=== PATIENT | female | born 1960 | race Two or more races ===

== ENCOUNTER 2016-09-28 13:50 | Inpatient (IN) | payer OTHER ==
[~2016-09-28] VITALS: Ht 162.6 cm; Wt 116.6 kg
[2016-09-28 15:40] VITALS: BP 156/105
--- NOTE | 2016-09-28 16:19 | Emergency Room Report ---
History of Present Illness General Chief Complaint: General Complaint Source: Patient Present Illness HPI 55 YO Female presents to the ED c/o tenderness 8/10 in severity and swelling to the bilateral axilla since age of 13. Patient states she's had a long-standing history of hydradenitis and has had one previous surgery in the past. Patient states she has tried multiple courses of oral antibiotics which provide little to no relief. Patient presents today for surgical removal of tracts and abscess 's. She denies nausea, vomiting, fevers, chills, recent illness. Pt reports Pmhx of DM and HTN. Denies CP, Palpitations, LOC, AMS, dizziness, Changes in Vision, Sensation, paresthesias, or a sudden severe headache. Allergies: Coded Allergies: CODEINE (Verified Allergy, Severe, 09/28/16) vomiting Patient History Past Medical History: see triage record Past Surgical History: none Pertinent Family History: none Last Menstrual Period: na Now: No Immunizations: UTD Reviewed Nursing Documentation: PMH: Agreed, PSxH: Agreed Nursing Documentation-PMH Past Medical History: No History, Except For Hx Hypertension: Yes Hx Diabetes: Yes Review of Systems All Other Systems: negative except mentioned in HPI Physical Exam Vital Signs Date Time Temp Pulse Resp B/P Pulse Ox O2 Delivery O2 Flow Rate FiO2 09/28/16 15:36 98.2 101 18 156/105 98 Room Air Sp02 EP Interpretation: reviewed, abnormal - elevated BP, tachycardic in triage at 101 General Appearance: no apparent distress, alert, GCS 15, non-toxic Head: normocephalic, atraumatic Eyes: bilateral eye PERRL, bilateral eye normal inspection ENT: hearing grossly normal, normal pharynx, no angioedema, normal voice Neck: full range of motion, supple/symm/no masses Respiratory: lungs clear, normal breath sounds, speaking full sentences Cardiovascular #1: regular rate, rhythm, no edema Gastrointestinal: normal bowel sounds, non tender, soft, no guarding, no rebound Rectal: deferred Genitourinary: normal inspection, no CVA tenderness Musculoskeletal: back normal, gait/station normal, normal range of motion, non- tender, no calf tenderness Neurologic: alert, oriented x3, responsive, motor strength/tone normal, sensory intact, speech normal Psychiatric: judgement/insight normal, memory normal, mood/affect normal, no suicidal/homicidal ideation Reflexes: 4+ bicep (R), 4+ bicep (L), 4+ tricep (R), 4+ tricep (L), 4+ knee (R) , 4+ knee (L) Skin: normal color, no rash, warm/dry, well hydrated Lymphatic: no adenopathy Medical Decision Making PA Attestation Dr. glass is my supervising Physician whom patient management has been discussed with. Diagnostic Impression: Primary Impression: Hidradenitis axillaris ER Course 55 YO Female presents to the ED c/o tenderness 10 in severity and swelling to the bilateral axilla since age of 13. Patient states she's had a long-standing history of hydradenitis and has had one previous surgery in the past. Patient states she has tried multiple courses of oral antibiotics which provide little to no relief. Patient presents today for surgical removal of tracts and abscess 's. She denies nausea, vomiting, fevers, chills, recent illness. Pt reports Pmhx of DM and HTN. Denies CP, Palpitations, LOC, AMS, dizziness, Changes in Vision, Sensation, paresthesias, or a sudden severe headache. Ddx considered but are not limited to cellulitis, hydradenitis Suppurativa, fracture, d/L, gout, abscess Vital signs: are WNL, pt. is afebrile H&PE are most consistent with bilateral axilla hydradenitis requiring direct admission for surgical or IV abx management. ORDERS: -Gen. preop labwork: CBC, CMP, PT/PTT: elevated glucose, LFT's and alk phos. otherwise unremarkable - EK BPM NSR - no acute ST changes reviewed by Dr. Price this interpretation was scribed by BEE Reyes - CXR: No consolidation, effusion, pneumothorax or acute cardiopulmonary findings per official radiology ED INTERVENTIONS: None required at this time. DISPOSITION: at this time pt. will be admitted to Dr. Escamilla for hydradenitis Suppurativa. Dr. Escamilla agreed to admit the pt. and to continue pt. care management. Labs Test 09/28/16 16:05 White Blood Count 8.6 K/UL (4.8-10.8) Red Blood Count 4.52 M/UL (4.20-5.40) Hemoglobin 14.3 G/DL (12.0-16.0) Hematocrit 41.7 % (37.0-47.0) Mean Corpuscular Volume 92 FL (80-99) Mean Corpuscular Hemoglobin 31.8 PG (27.0-31.0) Mean Corpuscular Hemoglobin Concent 34.4 G/DL (32.0-36.0) Red Cell Distribution Width 13.7 % (11.6-14.8) Platelet Count 226 K/UL (150-450) Mean Platelet Volume 8.9 FL (6.5-10.1) Neutrophils (%) (Auto) 68.4 % (45.0-75.0) Lymphocytes (%) (Auto) 23.0 % (20.0-45.0) Monocytes (%) (Auto) 5.1 % (1.0-10.0) Eosinophils (%) (Auto) 2.6 % (0.0-3.0) Basophils (%) (Auto) 1.0 % (0.0-2.0) Prothrombin Time 9.9 SEC (9.30-11.50) Prothromb Time International Ratio 0.9 (0.9-1.1) Activated Partial Thromboplast Time 24 SEC (23-33) Sodium Level 142 mEQ/L (135-145) Potassium Level 3.6 mEQ/L (3.4-4.9) Chloride Level 102 mEQ/L (98-107) Carbon Dioxide Level 25 mEQ/L (20-30) Anion Gap 15 (5-15) Blood Urea Nitrogen 19 mg/dL (7-23) Creatinine 0.9 mg/dL (0.5-0.9) Estimat Glomerular Filtration Rate > 60 mL/min (>60) Glucose Level 205 mg/dL (74-106) Calcium Level 9.6 mg/dL (8.6-10.2) Total Bilirubin 0.3 mg/dL (0.0-1.2) Aspartate Amino Transf (AST/SGOT) 81 U/L (5-40) Alanine Aminotransferase (ALT/SGPT) 64 U/L (3-33) Alkaline Phosphatase 110 U/L (35-104) Total Protein 8.0 g/dL (6.6-8.7) Albumin 4.4 g/dL (3.5-5.2) Globulin 3.6 g/dL Albumin/Globulin Ratio 1.2 (1.0-2.7) EKG Diagnostic Results Rate: normal - 99 Rhythm: NSR ST Segments: no acute changes ASA given to the pt in ED: No PA Scribe Text no acute ST changes per preliminary read by Dr. Price, his interpretation is scribed by BEE Reyes. Last Vital Signs Date Time Temp Pulse Resp B/P Pulse Ox O2 Delivery O2 Flow Rate FiO2 09/28/16 15:36 98.2 101 18 156/105 98 Room Air Disposition: ADMITTED INPATIENT Condition: Serious Referrals: NON PHYSICIAN (PCP) Siena Reyes Sep 28, 2016 16:19
[2016-09-28 16:33] LABS: EOSINOPHILS % (AUTO) 2.6 % (0.0-3.0); MEAN CORPUSCULAR HEMOGLOBIN 31.8 PG (27.0-31.0); MEAN CORPUSCULAR HGB CONC 34.4 G/DL (32.0-36.0); MEAN CORPUSCULAR VOLUME 92 FL (80-99); MEAN PLATELET VOLUME 8.9 FL (6.5-10.1); MONOCYTES % (AUTO) 5.1 % (1.0-10.0); NEUTROPHILS % (AUTO) 68.4 % (45.0-75.0); PLATELET COUNT 226 K/UL (150-450); RED BLOOD COUNT 4.52 M/UL (4.20-5.40); RED CELL DISTRIBUTION WIDTH 13.7 % (11.6-14.8); WHITE BLOOD COUNT 8.6 K/UL (4.8-10.8)
[2016-09-28 16:47] LABS: INR 0.9 (0.9-1.1); PROTHROMBIN TIME 9.9 SEC (9.30-11.50)
--- NOTE | 2016-09-28 16:48 | Diagnostic Imaging Report ---
Indication: Dyspnea Comparison: None A single view chest radiograph was obtained. Findings: Cardiomediastinal appearance is within normal limits for age. Pulmonary vascularity is appropriate. The diaphragmatic contour is smooth and costophrenic angles are sharp. No pleural effusions are identified. Mild osteophytes noted throughout the thoracic spine. Impression: No acute findings
[2016-09-28 16:54] LABS: ALANINE AMINOTRANSFERASE 64 U/L (3-33); ALBUMIN/GLOBULIN RATIO 1.2 (1.0-2.7); ANION GAP 15 (5-15); ASPARTATE AMINO TRANSFERASE 81 U/L (5-40); CALCIUM 9.6 mg/dL (8.6-10.2); CARBON DIOXIDE 25 mEQ/L (20-30); CHLORIDE 102 mEQ/L (98-107); CREATININE 0.9 mg/dL (0.5-0.9); GLOMERULAR FILTRATION RATE > 60 mL/min (>60); HEMOLYSIS 6; POTASSIUM 3.6 mEQ/L (3.4-4.9); SODIUM 142 mEQ/L (135-145)
[2016-09-28] MEDS ORDERED: D5NS 1,000 ML IV SCH (17:00)
[2016-09-28] MEDS ORDERED: Mylanta II UD 30ml ORAL PRN (17:00)
[2016-09-28] MEDS ORDERED: Morphine Sulfate 4mg/ml Inj IVP PRN (17:00)
[2016-09-28] MEDS ORDERED: Miralax 17gm pkt ORAL PRN (17:00)
[2016-09-28] MEDS ORDERED: LORazepam Inj 2mg/ml 1ml IV PRN (17:00)
[2016-09-28] MEDS ORDERED: Milk of Magnesia 30ml Ud ORAL PRN (17:00)
[2016-09-28 17:40] VITALS: BP 152/101
[2016-09-28 18:21] LABS: APPEARANCE,URINE CLEAR; KETONES,URINE NEGATIVE (NEGATIVE); LEUKOCYTE ESTERASE ,URINE 1+ (NEGATIVE); NITRITE,URINE NEGATIVE (NEGATIVE); PH,URINE 5 (4.5-8.0); PROTEIN,URINE 2+ (NEGATIVE); UROBILINOGEN,URINE NORMAL MG/DL (0.0-1.0)
[2016-09-28 18:27] LABS: BACTERIA,URINE FEW /HPF; RBC,URINE 0-2 /HPF (0 - 2); SQUAMOUS EPITHELIAL CELL,UR FEW /LPF (NONE/OCC)
[2016-09-28] MEDS: ceFAZolin 1gm in D5W 55ml IVPB SCH (18:56)
[2016-09-28] MEDS ORDERED: LOSARTAN POTAS100 MG ORAL (19:39)
[2016-09-28 19:40] VITALS: BP 150/98
[2016-09-28] MEDS ORDERED: AMLODIPINE BESY10 MG ORAL (19:41)
[2016-09-28] MEDS ORDERED: HYDROCHLOROTHIA25 MG ORAL (19:41)
[2016-09-28] MEDS ORDERED: MONTELUKAST SOD10 MG ORAL (19:43)
[2016-09-28] MEDS ORDERED: METFORMIN HCL500 M1 ORAL (19:43)
[2016-09-28 20:00] VITALS: BP 145/76
--- NOTE | 2016-09-28 21:17 | History and Physical ---
History of Present Illness General Date patient seen: Sep 28, 2016 Time patient seen: 21:09 Reason for Hospitalization: abscess Present Illness HPI 55 y/o morbidly obese female with hx of HTN/DMII and hidradenitis for many years , presents to the ER with c/o tenderness 8/10 in severity and swelling to the bilateral axillae. Patient states she's had a long-standing history of hydradenitis and has had one previous surgery in the past. Patient states she has tried multiple courses of oral antibiotics which provide little to no relief. Her pain is not relieved at home and noticed she had pus-like material draining from her R axilla Allergies: Coded Allergies: CODEINE (Verified Allergy, Severe, 09/28/16) vomiting Medication History Scheduled Amlodipine Besylate* (Amlodipine Besylate*), 10 MG ORAL DAILY, (Reported) Hydrochlorothiazide* (Hydrochlorothiazide*), 25 MG ORAL DAILY, (Reported) Losartan Potassium (Losartan Potassium), 100 MG ORAL DAILY, (Reported) Metformin Hcl* (Metformin Hcl*), 500 MG ORAL TWICE A DAY, (Reported) Montelukast Sodium* (Montelukast Sodium*), 10 MG ORAL DAILY, (Reported) Patient History History Provided By: Patient Healthcare decision maker Resuscitation status full code Advanced Directive on File Past Medical/Surgical History Past Medical/Surgical History: (1) Hidradenitis axillaris Family History Family History: Patient reports no known family medical history. Social History Social History: (1) No significant social history Review of Systems ROS Narrative CONSTITUTIONAL: No weight loss, fever, chills, weakness or fatigue. HEENT: Eyes: No visual loss, blurred vision, double vision or yellow sclerae. Ears, Nose, Throat: No hearing loss, sneezing, congestion, runny nose or sore throat. SKIN: No rash or itching. CARDIOVASCULAR: No chest pain, chest pressure or chest discomfort. No palpitations or edema. RESPIRATORY: No shortness of breath, cough or sputum. GASTROINTESTINAL: No anorexia, nausea, vomiting or diarrhea. No abdominal pain or blood. NEUROLOGICAL: No headache, dizziness, syncope, paralysis, ataxia, numbness or tingling in the extremities. No change in bowel or bladder control. MUSCULOSKELETAL: + bilateral axillary pain, +lower abdominal pannus pain HEMATOLOGIC: No anemia, bleeding or bruising. LYMPHATICS: No enlarged nodes. No history of splenectomy. PSYCHIATRIC: No history of depression or anxiety. ENDOCRINOLOGIC: No reports of sweating, cold or heat intolerance. No polyuria or polydipsia. ALLERGIES: No history of asthma, hives, eczema or rhinitis. Physical Exam Physical Exam Narrative General: alert, cooperative, no distress, appears stated age Head: normocephalic, without obvious abnormality, atraumatic Eyes: conjunctivae/corneas clear. PERRL, EOM's intact Throat: lips, mucosa, and tongue normal. MMM Neck: supple, symmetrical, trachea midline, and no JVD Lungs: clear to auscultation bilaterally Heart: regular rate and rhythm, S1, S2 normal, no murmur, click, rub or gallop Abdomen: soft, non-tender, non-distended, bowel sounds normal; no masses or organomegaly- in pannus there are multiple erythematous lesion inferiorly in the pannus, above it there is another larger lesion tender to palpation Extremities: R axilla- multiple lesions, erythema, active pus drainage, +rubor, +exquisite tenderness L axilla- erythema, rubor, no drainage, multiple lesions, not as tender to palpation Pulses: 2+ and symmetric Neurologic: grossly normal, no focal deficits Last 24 Hour Vital Signs Date Time Temp Pulse Resp B/P Pulse Ox O2 Delivery O2 Flow Rate FiO2 09/28/16 20:10 98.2 98 17 150/98 98 Room Air 09/28/16 19:40 98.2 98 17 150/98 98 Room Air 09/28/16 17:40 98.2 98 14 152/101 98 Room Air 09/28/16 15:40 98.2 101 18 156/105 98 Room Air 09/28/16 15:36 98.2 101 18 156/105 98 Room Air Laboratory Tests Test 09/28/16 16:05 09/28/16 17:55 White Blood Count 8.6 K/UL (4.8-10.8) Red Blood Count 4.52 M/UL (4.20-5.40) Hemoglobin 14.3 G/DL (12.0-16.0) Hematocrit 41.7 % (37.0-47.0) Mean Corpuscular Volume 92 FL (80-99) Mean Corpuscular Hemoglobin 31.8 PG (27.0-31.0) H Mean Corpuscular Hemoglobin Concent 34.4 G/DL (32.0-36.0) Red Cell Distribution Width 13.7 % (11.6-14.8) Platelet Count 226 K/UL (150-450) Mean Platelet Volume 8.9 FL (6.5-10.1) Neutrophils (%) (Auto) 68.4 % (45.0-75.0) Lymphocytes (%) (Auto) 23.0 % (20.0-45.0) Monocytes (%) (Auto) 5.1 % (1.0-10.0) Eosinophils (%) (Auto) 2.6 % (0.0-3.0) Basophils (%) (Auto) 1.0 % (0.0-2.0) Prothrombin Time 9.9 SEC (9.30-11.50) Prothromb Time International Ratio 0.9 (0.9-1.1) Activated Partial Thromboplast Time 24 SEC (23-33) Sodium Level 142 mEQ/L (135-145) Potassium Level 3.6 mEQ/L (3.4-4.9) Chloride Level 102 mEQ/L (98-107) Carbon Dioxide Level 25 mEQ/L (20-30) Anion Gap 15 (5-15) Blood Urea Nitrogen 19 mg/dL (7-23) Creatinine 0.9 mg/dL (0.5-0.9) Estimat Glomerular Filtration Rate > 60 mL/min (>60) Glucose Level 205 mg/dL (74-106) H Calcium Level 9.6 mg/dL (8.6-10.2) Total Bilirubin 0.3 mg/dL (0.0-1.2) Aspartate Amino Transf (AST/SGOT) 81 U/L (5-40) H Alanine Aminotransferase (ALT/SGPT) 64 U/L (3-33) H Alkaline Phosphatase 110 U/L (35-104) H Total Protein 8.0 g/dL (6.6-8.7) Albumin 4.4 g/dL (3.5-5.2) Globulin 3.6 g/dL Albumin/Globulin Ratio 1.2 (1.0-2.7) Urine Color Pale yellow Urine Appearance Clear Urine pH 5 (4.5-8.0) Urine Specific [place] 1.020 (1.005-1.035) Urine Protein 2+ (NEGATIVE) H Urine Glucose (UA) Negative (NEGATIVE) Urine Ketones Negative (NEGATIVE) Urine Occult Blood Negative (NEGATIVE) Urine Nitrite Negative (NEGATIVE) Urine Bilirubin Negative (NEGATIVE) Urine Urobilinogen Normal MG/DL (0.0-1.0) Urine Leukocyte Esterase 1+ (NEGATIVE) H Urine RBC 0-2 /HPF (0 - 2) Urine WBC 2-4 /HPF (0 - 2) Urine Squamous Epithelial Cells Few /LPF (NONE/OCC) Urine Bacteria Few /HPF (NONE) Height (Feet): 5 Height (Inches): 4.00 Weight (Pounds): 260 Medications Current Medications Medications (Trade) Dose Ordered Sig/Laura Route PRN Reason Start Time Stop Time Status Last Admin Dose Admin Acetaminophen (Tylenol) 650 mg Q4H PRN ORAL Mild Pain (Pain Scale 1-3) 09/28/16 17:00 10/28/16 16:59 Acetaminophen (Tylenol) 650 mg Q4H PRN ORAL fever 09/28/16 17:00 10/28/16 16:59 Al Hydroxide/Mg Hydroxide (Mylanta II) 30 ml Q6H PRN ORAL dyspepsia 09/28/16 17:00 10/28/16 16:59 Amlodipine Besylate (Norvasc) 10 mg DAILY ORAL 09/29/16 09:00 10/29/16 08:59 Bisacodyl (Dulcolax) 10 mg HSPRN PRN RECTAL Constipation 09/28/16 17:00 10/28/16 16:59 Cefazolin Sodium/ Dextrose (Ancef/D5W) 55 ml @ 110 mls/hr Q8HR@0200,1000,1800 IVPB 09/28/16 18:00 10/05/16 17:59 09/28/16 18:56 Dextrose STAT PRN IV Hypoglycemia 09/28/16 17:00 10/28/16 16:59 Dextrose/Sodium Chloride (D5ns) 1,000 ml @ 50 mls/hr Q20H IV 09/28/16 17:00 10/28/16 16:59 09/28/16 18:50 Diphenhydramine HCl (Benadryl) 25 mg Q6H PRN ORAL Itching/Pruritis 09/28/16 17:00 10/28/16 16:59 Docusate Sodium (Colace) 100 mg EVERY 12 HOURS ORAL 09/28/16 21:00 10/28/16 20:59 Hydrochlorothiazide (Hydrodiuril) 25 mg DAILY ORAL 09/29/16 09:00 10/29/16 08:59 Lorazepam (Ativan 2mg/ml 1ml) 0.5 mg Q4H PRN IV For Anxiety 09/28/16 17:00 10/05/16 16:59 Losartan Potassium (Cozaar) 100 mg DAILY ORAL 09/29/16 09:00 10/29/16 08:59 Magnesium Hydroxide (Mom) 30 ml HSPRN PRN ORAL Constipation 09/28/16 17:00 10/28/16 16:59 Metformin HCl (Glucophage) 500 mg BID ORAL 09/29/16 09:00 10/29/16 08:59 Montelukast Sodium (Singulair) 10 mg QPM ORAL 09/29/16 16:30 10/29/16 16:29 Morphine Sulfate (Morphine Sulfate) 4 mg Q4H PRN IVP Severe Pain (Pain Scale 7-10) 09/28/16 17:00 10/05/16 16:59 Ondansetron HCl (Zofran) 4 mg Q6H PRN IVP Nausea & Vomiting 09/28/16 17:00 10/28/16 16:59 Polyethylene Glycol (Miralax) 17 gm HSPRN PRN ORAL Constipation 09/28/16 17:00 10/28/16 16:59 Temazepam (Restoril) 15 mg HSPRN PRN ORAL Insomnia 09/28/16 17:00 10/05/16 16:59 Assessment/Plan Problem List: (1) Abscesses of both axillae Assessment & Plan: Admit to inpatient Start IV abx wound culture Supp care Pain control IV fluids Surgical consultation ICD Codes: L02.411 - Cutaneous abscess of right axilla; L02.412 - Cutaneous abscess of left axilla SNOMED: 97661050 (2) Diabetes mellitus type 2 in obese Assessment & Plan: Hold metformin Start insulin sliding scale ICD Codes: E11.69 - Type 2 diabetes mellitus with other specified complication ; E66.9 - Obesity, unspecified SNOMED: 93541630 (3) HTN (hypertension) Assessment & Plan: Cont all 3 BP meds as inpatient ICD Codes: I10 - Essential (primary) hypertension SNOMED: 76277078 (4) Morbid obesity due to excess calories Assessment & Plan: Stable ICD Codes: E66.01 - Morbid (severe) obesity due to excess calories SNOMED: 261146264 EMIL NAVARRO Sep 28, 2016 21:17
[2016-09-28] MEDS: Docusate 100mg cap ORAL SCH (21:41)
[2016-09-29] VITALS (13 sets, daily range): BP systolic 130–181; BP diastolic 67–107
[2016-09-29] MEDS: ceFAZolin 1gm in D5W 55ml IVPB SCH ×4 (01:46→21:40)
[2016-09-29] MEDS: NovoLOG Insulin Flexpen SUBQ SCH ×4 (06:30→21:37)
[2016-09-29 07:22] LABS: BASOPHILS % (AUTO) 0.6 % (0.0-2.0); EOSINOPHILS % (AUTO) 4.8 % (0.0-3.0); LYMPHOCYTES % (AUTO) 26.6 % (20.0-45.0); MEAN CORPUSCULAR HEMOGLOBIN 29.2 PG (27.0-31.0); MEAN CORPUSCULAR HGB CONC 31.6 G/DL (32.0-36.0); MEAN CORPUSCULAR VOLUME 93 FL (80-99); MEAN PLATELET VOLUME 9.1 FL (6.5-10.1); MONOCYTES % (AUTO) 6.8 % (1.0-10.0); NEUTROPHILS % (AUTO) 61.3 % (45.0-75.0); PLATELET COUNT 231 K/UL (150-450); RED BLOOD COUNT 4.54 M/UL (4.20-5.40); RED CELL DISTRIBUTION WIDTH 13.6 % (11.6-14.8); WHITE BLOOD COUNT 7.1 K/UL (4.8-10.8)
[2016-09-29 07:31] LABS: ANION GAP 10 (5-15); CALCIUM 9.4 mg/dL (8.6-10.2); CARBON DIOXIDE 27 mEQ/L (20-30); CHLORIDE 103 mEQ/L (98-107); CREATININE 0.9 mg/dL (0.5-0.9); GLOMERULAR FILTRATION RATE > 60 mL/min (>60); HEMOLYSIS 6; SODIUM 140 mEQ/L (135-145)
[2016-09-29] MEDS: Losartan 50mg tab ORAL SCH (09:00)
[2016-09-29] MEDS: Docusate 100mg cap ORAL SCH ×2 (09:00→21:41)
[2016-09-29] MEDS ORDERED: metFORMIN 500mg tab ORAL SCH (09:00)
--- NOTE | 2016-09-29 09:49 | Anethesia Preoperative Eval ---
Anesthesia Pre-op PMH/ROS General Date of Evaluation: Sep 29, 2016 Anesthesiologist: Ty ASA Score: ASA 3 Mallampati Score Class I : Soft palate, uvula, fauces, pillars visible Class II: Soft palate, uvula, fauces visible Class III: Soft palate, base of uvula visible Class IV: Only hard plate visible Mallampati Classification: Class III Surgeon: Hugo Diagnosis: Axillary HS Surgical Procedure: Bilateral axillary wound I&D Anesthesia History: none Family History: no anesthesia problems Allergies: Coded Allergies: CODEINE (Verified Allergy, Severe, 09/28/16) vomiting Medications: see eMAR Past Medical History Cardiovascular: Reports: HTN, Denies: CAD, MO, arrhythmia, other, valve dz Pulmonary: Reports: OWEN, Denies: COPD, asthma, other Gastrointestinal/Genitourinary: Reports: GERD, Denies: CRI, ESRD, other Neurologic/Psychiatric: Reports: depression/anxiety, Denies: CVA, TIA, dementia, other Endocrine: Reports: DM, Denies: hypothyroidism, other, steroids HEENT: Denies: KLUTI KAAH (L), KLUTI KAAH (R), cataract (L), cataract (R), glaucoma, other Hematology/Immune: Reports: anemia - chronic, Denies: DVT, bleeding disorder, other Musculoskeletal/Integumentary: Reports: other - HS Other: obesity - morbid PSxH Narrative: DIRK pavon Anesthesia Pre-op Phys. Exam Physician Exam Last Vital Signs Date Time Temp Pulse Resp B/P Pulse Ox O2 Delivery O2 Flow Rate FiO2 09/29/16 09:00 122/76 09/29/16 08:14 97.9 83 19 94 Room Air Constitutional: NAD Cardiovascular: RRR Respiratory: CTA Airway Exam Mallampati Score: Class III MO: limited ROM: full Teeth: intact Anesthesia Pre-op A/P Labs Hematology Test 09/28/16 16:05 09/29/16 06:50 White Blood Count 8.6 K/UL (4.8-10.8) 7.1 K/UL (4.8-10.8) Red Blood Count 4.52 M/UL (4.20-5.40) 4.54 M/UL (4.20-5.40) Hemoglobin 14.3 G/DL (12.0-16.0) 13.3 G/DL (12.0-16.0) Hematocrit 41.7 % (37.0-47.0) 42.1 % (37.0-47.0) Mean Corpuscular Volume 92 FL (80-99) 93 FL (80-99) Mean Corpuscular Hemoglobin 31.8 PG (27.0-31.0) H 29.2 PG (27.0-31.0) Mean Corpuscular Hemoglobin Concent 34.4 G/DL (32.0-36.0) 31.6 G/DL (32.0-36.0) L Red Cell Distribution Width 13.7 % (11.6-14.8) 13.6 % (11.6-14.8) Platelet Count 226 K/UL (150-450) 231 K/UL (150-450) Mean Platelet Volume 8.9 FL (6.5-10.1) 9.1 FL (6.5-10.1) Neutrophils (%) (Auto) 68.4 % (45.0-75.0) 61.3 % (45.0-75.0) Lymphocytes (%) (Auto) 23.0 % (20.0-45.0) 26.6 % (20.0-45.0) Monocytes (%) (Auto) 5.1 % (1.0-10.0) 6.8 % (1.0-10.0) Eosinophils (%) (Auto) 2.6 % (0.0-3.0) 4.8 % (0.0-3.0) H Basophils (%) (Auto) 1.0 % (0.0-2.0) 0.6 % (0.0-2.0) Coagulation Test 09/28/16 16:05 Prothrombin Time 9.9 SEC (9.30-11.50) Prothromb Time International Ratio 0.9 (0.9-1.1) Activated Partial Thromboplast Time 24 SEC (23-33) Chemistry Test 09/28/16 16:05 09/29/16 06:50 Sodium Level 142 mEQ/L (135-145) 140 mEQ/L (135-145) Potassium Level 3.6 mEQ/L (3.4-4.9) 4.0 mEQ/L (3.4-4.9) Chloride Level 102 mEQ/L (98-107) 103 mEQ/L (98-107) Carbon Dioxide Level 25 mEQ/L (20-30) 27 mEQ/L (20-30) Anion Gap 15 (5-15) 10 (5-15) Blood Urea Nitrogen 19 mg/dL (7-23) 15 mg/dL (7-23) Creatinine 0.9 mg/dL (0.5-0.9) 0.9 mg/dL (0.5-0.9) Estimat Glomerular Filtration Rate > 60 mL/min (>60) > 60 mL/min (>60) Glucose Level 205 mg/dL (74-106) H 179 mg/dL (74-106) H Calcium Level 9.6 mg/dL (8.6-10.2) 9.4 mg/dL (8.6-10.2) Total Bilirubin 0.3 mg/dL (0.0-1.2) Aspartate Amino Transf (AST/SGOT) 81 U/L (5-40) H Alanine Aminotransferase (ALT/SGPT) 64 U/L (3-33) H Alkaline Phosphatase 110 U/L (35-104) H Total Protein 8.0 g/dL (6.6-8.7) Albumin 4.4 g/dL (3.5-5.2) Globulin 3.6 g/dL Albumin/Globulin Ratio 1.2 (1.0-2.7) Hemoglobin A1c 6.7 % (< 6.0) H Studies Pre-op Studies: EKG - sr Risk Assessment & Plan Assessment: ASA III Plan: GA Status Change Before Surgery: No Pre-Antibiotics Drug: Ancef 2g Given Within 1 Hr of Incision: Yes Time Given: 14:15 SAILAJA WARE M.D. Sep 29, 2016 09:49
--- NOTE | 2016-09-29 13:45 | Pre-Procedure Note/Attestation ---
Pre-Procedure Note/Attestation Complete Prior to Procedure Planned Procedure: bilateral Procedure Narrative: Bilateral axillary tissue excision and flap elevation Attestation I attest that I discussed the nature of the procedure; its benefits; risks and complications; and alternatives (and the risks and benefits of such alternatives ), prior to the procedure, with the patient (or the patient's legal visitor services representative). I attest that, if there was a reasonable possibility of needing a blood transfusion, the patient (or the patient's legal visitor services representative) was given the [facility] standardized written summary, pursuant to the Maulik Angelita Blood Safety Act ([place] Health and Safety Code # 1645, as amended). I attest that I re-evaluated the patient just prior to the surgery and that there has been no change in the patient's H&P, except as documented below: HANSEL FONTANEZ Sep 29, 2016 13:45
[2016-09-29] MEDS ORDERED: fentaNYL 250mcg/5ml ONE (14:00)
[2016-09-29] MEDS ORDERED: Dexamethasone 4mg/ml vial ONE (14:00)
[2016-09-29] MEDS ORDERED: LR 1000ml ONE (14:00)
[2016-09-29] MEDS ORDERED: Glycopyrrolate 0.2mg/ml 1ml Vial ONE (14:00)
[2016-09-29] MEDS ORDERED: Midazolam 2mg/2ml Inj ONE (14:00)
[2016-09-29] MEDS ORDERED: Succinylcholine 20mg/ml 10ml vial ONE (14:00)
[2016-09-29] MEDS ORDERED: Zemuron 50mg/5ml Inj IV ONE (14:00)
[2016-09-29] MEDS ORDERED: Lidocaine 1% 10mg/ml/Epi 0.005mg/ml 30ml vial INJ ONE (14:00)
[2016-09-29] MEDS ORDERED: Heparin 5000 units/ml inj SUBQ SCH (14:00)
[2016-09-29] MEDS ORDERED: Bacitracin 50000 Units Vial ONE (14:00)
[2016-09-29] MEDS ORDERED: Propofol 10mg/ml 20ml IV ONE ×3 (14:00→15:12)
[2016-09-29] MEDS ORDERED: NS Irrig 1000ml ONE (14:00)
[2016-09-29] MEDS ORDERED: Ketorolac 30mg Inj ONE (14:00)
[2016-09-29] MEDS ORDERED: Metoclopramide 10mg/2ml Inj ONE (14:00)
[2016-09-29] MEDS ORDERED: Lidocaine 1% MPF 10mg/ml 5ml ONE (14:00)
[2016-09-29] MEDS ORDERED: Neostigmine 1mg/ml 10ml Inj ONE (14:00)
[2016-09-29] MEDS ORDERED: Sterile Water Irrig 1000ml IRRIG ONE (14:00)
[2016-09-29] MEDS ORDERED: Rate Change PCA 1 Each MISC PRN (14:30)
[2016-09-29] MEDS ORDERED: PCA HYDROmorphone 1mg/ml 30 ML IV PRN (14:30)
[2016-09-29] MEDS ORDERED: LR 1000ml 1,000 ML IVLG SCH (14:35)
--- NOTE | 2016-09-29 14:37 | Immediate Post-Op Evaluation ---
Immediate Post-Op Evalulation Immediate Post-Op Evalulation Procedure: Bilateral axillay wound I&D Date of Evaluation: Sep 29, 2016 Time of Evaluation: 16:16 IV Fluids: 900 Blood Products: 0 Estimated Blood Loss: 40 Urinary Output: 0 Blood Pressure Systolic: 181 Blood Pressure Diastolic: 92 Pulse Rate: 108 Respiratory Rate: 18 O2 Sat by Pulse Oximetry: 97 Temperature (Fahrenheit): 97 Pain Score (1-10): 0 Nausea: No Vomiting: No Complications 0 Patient Status: awake, reacts, patent, none Hydration Status: adequate Drug: Ancef 2g Given Within 1 Hr of Incision: Yes Time Given: 14:15 SAILAJA WARE M.D. Sep 29, 2016 14:37
[2016-09-29] MEDS ORDERED: Metoclopramide 10mg/2ml Inj IVP PRN (14:45)
[2016-09-29] MEDS ORDERED: Midazolam 2mg/2ml Inj IVP PRN (14:45)
[2016-09-29] MEDS ORDERED: DiphenhydrAMINE 50mg/ml Inj IVP PRN (14:45)
[2016-09-29] MEDS ORDERED: fentaNYL 100 mcg/2 mL IV PRN (14:45)
[2016-09-29] MEDS ORDERED: LORazepam Inj 2mg/ml 1ml IV PRN (14:45)
--- NOTE | 2016-09-29 15:27 | General Progress Note ---
Assessment/Plan Problem List: (1) Abscesses of both axillae Assessment & Plan: To OR today for I+D of bilateral axillary abscesses Cont IV abx wound culture Supp care Pain control IV fluids Surgical consultation appreciated ICD Codes: L02.411 - Cutaneous abscess of right axilla; L02.412 - Cutaneous abscess of left axilla SNOMED: 14480515 (2) Diabetes mellitus type 2 in obese Assessment & Plan: Hold metformin Cont insulin sliding scale ICD Codes: E11.69 - Type 2 diabetes mellitus with other specified complication ; E66.9 - Obesity, unspecified SNOMED: 74812104 (3) HTN (hypertension) Assessment & Plan: Cont all 3 BP meds as inpatient ICD Codes: I10 - Essential (primary) hypertension SNOMED: 49437182 (4) Morbid obesity due to excess calories Assessment & Plan: Stable ICD Codes: E66.01 - Morbid (severe) obesity due to excess calories SNOMED: 576809685 Subjective Date patient seen: Sep 29, 2016 ROS Limited/Unobtainable: No Allergies: Coded Allergies: CODEINE (Verified Allergy, Severe, 09/28/16) vomiting Subjective No acute events overnight, no fevers/chills, pain controlled. Tolerated abx Objective Last 24 Hour Vital Signs Date Time Temp Pulse Resp B/P Pulse Ox O2 Delivery O2 Flow Rate FiO2 09/29/16 11:38 98.1 93 20 133/67 97 Room Air 09/29/16 09:00 122/76 09/29/16 08:14 97.9 83 19 135/72 94 Room Air 09/29/16 04:00 97.5 91 20 143/88 97 Room Air 09/29/16 00:00 98.4 87 19 130/74 92 Room Air 09/28/16 20:10 98.2 98 17 150/98 98 Room Air 09/28/16 20:00 97.4 86 18 145/76 94 Room Air 09/28/16 19:40 98.2 98 17 150/98 98 Room Air 09/28/16 17:40 98.2 98 14 152/101 98 Room Air 09/28/16 15:40 98.2 101 18 156/105 98 Room Air 09/28/16 15:36 98.2 101 18 156/105 98 Room Air Intake and Output 09/28/16 09/29/16 19:00 07:00 Intake Total 450 ml Balance 450 ml Intake IV Total 450 ml # Voids 1 Laboratory Tests 09/28/16 16:05: White Blood Count 8.6, Red Blood Count 4.52, Hemoglobin 14.3, Hematocrit 41.7, Mean Corpuscular Volume 92, Mean Corpuscular Hemoglobin 31.8H, Mean Corpuscular Hemoglobin Concent 34.4, Red Cell Distribution Width 13.7, Platelet Count 226, Mean Platelet Volume 8.9, Neutrophils (%) (Auto) 68.4, Lymphocytes (%) (Auto) 23.0, Monocytes (%) (Auto) 5.1, Eosinophils (%) (Auto) 2.6, Basophils (%) (Auto ) 1.0, Prothrombin Time 9.9, Prothromb Time International Ratio 0.9, Activated Partial Thromboplast Time 24, Sodium Level 142, Potassium Level 3.6, Chloride Level 102, Carbon Dioxide Level 25, Anion Gap 15, Blood Urea Nitrogen 19, Creatinine 0.9, Estimat Glomerular Filtration Rate > 60, Glucose Level 205H, Calcium Level 9.6, Total Bilirubin 0.3, Aspartate Amino Transf (AST/SGOT) 81H, Alanine Aminotransferase (ALT/SGPT) 64H, Alkaline Phosphatase 110H, Total Protein 8.0, Albumin 4.4, Globulin 3.6, Albumin/Globulin Ratio 1.2 09/28/16 17:55: Urine Color Pale yellow, Urine Appearance Clear, Urine pH 5, Urine Specific Roby 1.020, Urine Protein 2+H, Urine Glucose (UA) Negative, Urine Ketones Negative, Urine Occult Blood Negative, Urine Nitrite Negative, Urine Bilirubin Negative, Urine Urobilinogen Normal, Urine Leukocyte Esterase 1+H, Urine RBC 0-2 , Urine WBC 2-4, Urine Squamous Epithelial Cells Few, Urine Bacteria Few 09/29/16 06:50: White Blood Count 7.1, Red Blood Count 4.54, Hemoglobin 13.3, Hematocrit 42.1, Mean Corpuscular Volume 93, Mean Corpuscular Hemoglobin 29.2, Mean Corpuscular Hemoglobin Concent 31.6L, Red Cell Distribution Width 13.6, Platelet Count 231, Mean Platelet Volume 9.1, Neutrophils (%) (Auto) 61.3, Lymphocytes (%) (Auto) 26.6, Monocytes (%) (Auto) 6.8, Eosinophils (%) (Auto) 4.8H, Basophils (%) (Auto ) 0.6, Sodium Level 140, Potassium Level 4.0, Chloride Level 103, Carbon Dioxide Level 27, Anion Gap 10, Blood Urea Nitrogen 15, Creatinine 0.9, Estimat Glomerular Filtration Rate > 60, Glucose Level 179H, Calcium Level 9.4, Hemoglobin A1c 6.7H Height (Feet): 5 Height (Inches): 4.00 Weight (Pounds): 257 Objective General: alert, cooperative, no distress, appears stated age Head: normocephalic, without obvious abnormality, atraumatic Eyes: conjunctivae/corneas clear. PERRL, EOM's intact Throat: lips, mucosa, and tongue normal. MMM Neck: supple, symmetrical, trachea midline, and no JVD Lungs: clear to auscultation bilaterally Heart: regular rate and rhythm, S1, S2 normal, no murmur, click, rub or gallop Abdomen: soft, non-tender, non-distended, bowel sounds normal; no masses or organomegaly Extremities: R axilla- multiple lesions, erythema, active pus drainage, +rubor, +exquisite tenderness L axilla- erythema, rubor, no drainage, multiple lesions, not as tender to palpation Pulses: 2+ and symmetric Skin: skin color, texture, turgor normal; no rashes or lesions Neurologic: grossly normal, no focal deficits EMIL NAVARRO Sep 29, 2016 15:27
--- NOTE | 2016-09-29 15:45 | Operative Note - PDOC ---
Operative Note Operative Note Pre-op Diagnosis: Bilateral infected axillary tissue Procedure: Radical excision of bilateral axillary tissue and flap elevation with wound vac placement Post-op Diagnosis: same as pre-op Surgeon: Hugo Warp Knitting Machine Operator: Carmen Anesthesia: general Specimen: yes Complications: none Condition: stable Estimated Blood Loss: minimal Drains: wound vac Implant(s) used?: No HANSEL FONTANEZ Sep 29, 2016 15:45
[2016-09-29] MEDS: Montelukast 10mg tablet ORAL SCH (16:30)
--- NOTE | 2016-09-29 16:54 | Cardiology Report ---
APPROVED REPORT EKG Measurement Heart [id number] Normal sinus rhythm Possible Left atrial enlargement Left axis deviation Pulmonary disease pattern Left ventricular hypertrophy Abnormal ECG
[2016-09-29] MEDS ORDERED: Docusate 100mg cap ORAL SCH (18:00)
[2016-09-29] MEDS: PCA shift volume MISC SCH (19:06)
[2016-09-29] MEDS ORDERED: Zolpidem 5mg tab ORAL PRN (21:00)
--- NOTE | 2016-09-29 21:40 | Consultation ---
DATE OF CONSULTATION: 09/29/2016 HISTORY OF PRESENT ILLNESS: This is a 55-year-old female with a history of diabetes, hypertension, and hidradenitis, who presented to the emergency room with bilateral infected axillary tissues associated with pain and drainage. She has tried antibiotics recently with no avail. She presented with pain and discomfort in the areas, Dr. Janine Escamilla admitted the patient. PAST MEDICAL HISTORY: Significant for diabetes, hypertension, and hidradenitis. PAST SURGICAL HISTORY: Significant for previous incision and drainage. MEDICATION: Includes previous use of antibiotics. ALLERGIES: Include codeine. PHYSICAL EXAMINATION: GENERAL: The patient is an obese female who is alert and oriented. HEART: Regular rate and rhythm. ABDOMEN: Soft, nontender, and nondistended. EXTREMITIES: Examination of her chest reveals bilateral inferior breast pole abscesses associated with hidradenitis as well as bilateral axillary infected blocks of tissue associated with sinus tract and abscesses. ASSESSMENT AND PLAN: This is a 55-year-old morbidly obese female with diabetes and hypertension, who presents with bilateral axillary infections. She will require a radical excision of these areas with staged flap elevation with closure to be done as the second procedure given the amount of drainage from the wounds. It would not be prudent to perform definitive wound closure at this time. At the time of the first procedure as such she will probably undergo excision, flap elevation with interval wound VAC placement followed by definitive flap closure. Arthur Arias M.D. DR: RONAL JOB#: [id number] CC: SERGEI
[2016-09-29] MEDS: Heparin 5000 units/ml inj SUBQ SCH (21:45)
--- NOTE | 2016-09-29 22:30 | Operative Note - Dictated ---
DATE OF OPERATION: 09/29/2016 PREOPERATIVE DIAGNOSES: 1. Infected right axillary tissue. 2. Infected left axillary tissue. POSTOPERATIVE DIAGNOSES: 1. Infected right axillary tissue. 2. Infected left axillary tissue. PROCEDURES: 1. Radical excision of right axillary tissue. 2. Elevation of a medial arm flap for staged closure of right axillary wound. 3. Elevation of a superior chest wall flap for closure of right axillary wound. 4. Elevation of an inferior chest wall flap for closure of right axillary wound. 5. Radical excision of left axillary tissue. 6. Elevation of a medial arm flap for staged closure of left axillary wound. 7. Elevation of a superior chest wall flap for staged closure of left axillary wound. 8. Elevation of an inferior chest wall flap for staged closure of left axillary wound. SURGEON: Arthur Arias M.D. NEUROLOGY NURSE: Mack Parkinson M.D. ANESTHESIA: General. COMPLICATIONS: None. DRAINS: Included bilateral wound VACs in the axilla. DISPOSITION: Stable to the recovery room. INDICATIONS FOR SURGERY: This is a 55-year-old female with a history of diabetes and hypertension who presented to the emergency room with bilateral axillary infections with associated drainage and pain and upon evaluation, I felt that she was an appropriate candidate for radical excision of the tissue with flap elevation and staged closure given the amount of infection present. I felt that it would not be prudent to perform definitive flap closure at that first stage. She understood the risks and benefits of surgery and agreed to proceed. DETAILS OF THE OPERATION: The patient was brought to the operating room and laid in the supine position on the operating table. We first began on the left side by prepping the left axilla, chest wall, and upper arm. Once this was done, a marking pen was used to delineate the extent of the disease which extended most of the axilla and on to the chest wall. Once the markings were made. A #10 blade was used to make the incision all the way around the perimeter of the markings and once this was done, the electrocautery was used to radically excise the tissue en bloc all the way down to the level of the axillary fascia. With the specimen radically excised the wound that resulted measured 20 x 20 centimeters and clearly was not amenable to primary closure. As such, a combination of three flaps had to be elevated to allow for definitive flap closure. We first began by elevating a medial arm flap based off of perforators to the brachial artery with proximal and distal incisions made to fully mobilize the flap just above the brachial fascia. This allowed for a significant closure of the wound however we still needed to advance the lateral chest wall wounds first. A superior chest wall wound was elevated based off of perforators of the thoracoacromial artery. This allowed for further closure of the wound. This was done with proximal and distal incisions made with elevation off of the deltoid fascia and in a similar fashion. An inferior lateral chest wall flap based off of perforators of the thoracodorsal artery was elevated off of the latissimus muscle with proximal and distal incisions made to fully mobilize the flap. With these flaps fully mobilized it was noted the wounds could be closed by opposition of all three flaps. However, given the amount of infection that we came across, we felt that it would not be prudent to perform the definitive closure of the wound. As such, after definitive hemostasis and irrigation, the wound VAC was placed with a plan to bring the patient back to the operating room, to definitively advancement of flaps for closure within three to five days. With the wound VAC in place on this side, we then prepped the patient's right axilla and in a similar fashion, the marking was made. After the patient was prepped and draped and a #10 blade was used to make a skin incision on the side of the defect that resulted was 25 x 25 centimeters and it was larger obviously than the other side. It was definitely not amenable to primary closure. However, there was some laxity to the patient's nearby tissues as such corresponding flaps had to be elevated. We first began by elevating a medial arm flap based off of perforators of the brachial artery. Elevation was done just above the brachial fascia with proximal and distal incisions made to fully mobilize the flap. Following this a superior chest wall flap based on perforators of the thoracoacromial artery was also elevated. The dissection being performed above the deltoid fascia to fully mobilize the flap. With these two flaps elevated, we could achieve further closure of the wound, however, it was not obvious that a inferior chest wall flap also had to be elevated based off of perforators of the dorsal artery to the latissimus muscle and with this flap elevated with proximal and distal incisions made to fully mobilize the flap. It was noted that the three flaps together in conglomeration will allow for definitive wound closure, but as was noted on the other side, the wound could not be fully closed because of the infection noted and so after hemostasis was achieved and irrigation was performed, the wound VAC was placed into the wound and both this side and the other wound VAC were set to 150 mmHg. The plan being to bring the patient back to the operating room within three to five days for definitive wound closure. Arthur Arias M.D. DR: RONAL JOB#: [id number] CC: SERGEI
[2016-09-30] VITALS: BP 105/67
[2016-09-30 04:00] VITALS: BP 125/82
[2016-09-30] MEDS: NovoLOG Insulin Flexpen SUBQ SCH ×4 (05:50→22:04)
[2016-09-30] MEDS: Heparin 5000 units/ml inj SUBQ SCH ×3 (05:51→22:11)
[2016-09-30] MEDS: ceFAZolin 1gm in D5W 55ml IVPB SCH ×3 (05:52→22:00)
[2016-09-30] MEDS: PCA shift volume MISC SCH (07:10)
[2016-09-30 08:00] VITALS: BP 141/76
[2016-09-30] MEDS: Docusate 100mg cap ORAL SCH ×2 (08:18→22:00)
[2016-09-30] MEDS: Losartan 50mg tab ORAL SCH (08:18)
--- NOTE | 2016-09-30 10:27 | General Progress Note ---
Progress Note Progress Note Pt seen and examined. POD # 1 from radical excision of axillary tissue. Doing well and wound vac fxing well. Continue abx and wound vac. HANSEL Bhardwaj MD Sep 30, 2016 10:27
[2016-09-30 12:00] VITALS: BP 112/62
--- NOTE | 2016-09-30 13:34 | 48 Hour Post Anesthesia Eval ---
Post Anesthesia Evaluation Procedure: Bilateral axillay wound I&D Date of Evaluation: Sep 30, 2016 Time of Evaluation: 13:34 Nausea: No Vomiting: No Hydration Status: adequate Mental Status/LOC: patient returned to baseline Dave Bryant MD Sep 30, 2016 13:34
[2016-09-30 16:00] VITALS: BP 126/58
[2016-09-30] MEDS: Montelukast 10mg tablet ORAL SCH (17:32)
[2016-09-30] MEDS ORDERED: Tubing IV Secondary IV ONE (18:09)
--- NOTE | 2016-09-30 18:11 | General Progress Note ---
Assessment/Plan Problem List: (1) Abscesses of both axillae Assessment & Plan: s/p I+D of bilateral axillary abscesses Cont IV abx wound culture Supp care Pain control IV fluids Wound care per Surgery ICD Codes: L02.411 - Cutaneous abscess of right axilla; L02.412 - Cutaneous abscess of left axilla SNOMED: 79419693 (2) Diabetes mellitus type 2 in obese Assessment & Plan: Hold metformin Cont insulin sliding scale ICD Codes: E11.69 - Type 2 diabetes mellitus with other specified complication ; E66.9 - Obesity, unspecified SNOMED: 78061192 (3) HTN (hypertension) Assessment & Plan: Cont all 3 BP meds as inpatient ICD Codes: I10 - Essential (primary) hypertension SNOMED: 12848705 (4) Morbid obesity due to excess calories Assessment & Plan: Stable ICD Codes: E66.01 - Morbid (severe) obesity due to excess calories SNOMED: 743571775 Subjective Date patient seen: Sep 30, 2016 Time patient seen: 18:09 ROS Limited/Unobtainable: No Allergies: Coded Allergies: CODEINE (Verified Allergy, Severe, 09/28/16) vomiting Subjective s/p debridement of bilateral axillary abscesses POD#1, no acute events overnight , no fevers/chills, pain controlled. Tolerated abx, no chest pain or dyspnea, no n/v Objective Last 24 Hour Vital Signs Date Time Temp Pulse Resp B/P Pulse Ox O2 Delivery O2 Flow Rate FiO2 09/30/16 16:00 98.1 101 19 126/58 92 Room Air 09/30/16 12:00 98.1 102 18 112/62 91 Room Air 09/30/16 12:00 18 09/30/16 08:18 141/76 09/30/16 08:18 105 141/76 09/30/16 08:00 98.1 105 20 141/76 92 Room Air 09/30/16 07:35 18 09/30/16 04:00 18 09/30/16 04:00 98.1 97 18 125/82 97 Room Air 09/30/16 00:00 18 09/30/16 00:00 98.4 113 18 105/67 93 Room Air 09/29/16 20:00 18 09/29/16 20:00 98.1 113 18 140/78 94 Room Air Intake and Output 09/29/16 09/30/16 19:00 07:00 Intake Total 830 ml 1000 ml Output Total 225 ml 865 ml Balance 605 ml 135 ml Intake Oral 780 ml 500 ml IV Total 50 ml 500 ml Output Urine Total 700 ml Drainage Total 225 ml 165 ml # Voids 2 Height (Feet): 5 Height (Inches): 4.00 Weight (Pounds): 257 Objective General: alert, cooperative, no distress, appears stated age Head: normocephalic, without obvious abnormality, atraumatic Eyes: conjunctivae/corneas clear. PERRL, EOM's intact Throat: lips, mucosa, and tongue normal. MMM Neck: supple, symmetrical, trachea midline, and no JVD Lungs: clear to auscultation bilaterally Heart: regular rate and rhythm, S1, S2 normal, no murmur, click, rub or gallop Abdomen: soft, non-tender, non-distended, bowel sounds normal; no masses or organomegaly Extremities: axillary dressings c/d/i with wound vacs in both axillae Pulses: 2+ and symmetric Skin: skin color, texture, turgor normal; no rashes or lesions Neurologic: grossly normal, no focal deficits EMIL NAVARRO Sep 30, 2016 18:11
[2016-09-30 20:07] VITALS: BP 132/78
[2016-10-01] VITALS (7 sets, daily range): BP systolic 130–146; BP diastolic 70–95
[2016-10-01] MEDS: ceFAZolin 1gm in D5W 55ml IVPB SCH ×3 (05:36→22:15)
[2016-10-01] MEDS: Heparin 5000 units/ml inj SUBQ SCH ×3 (05:37→22:20)
[2016-10-01] MEDS: NovoLOG Insulin Flexpen SUBQ SCH ×5 (06:42→22:19)
[2016-10-01] MEDS: Losartan 50mg tab ORAL SCH (09:47)
[2016-10-01] MEDS: Docusate 100mg cap ORAL SCH ×2 (09:48→22:15)
--- NOTE | 2016-10-01 16:14 | General Progress Note ---
Assessment/Plan Problem List: (1) Abscesses of both axillae Assessment & Plan: s/p I+D of bilateral axillary abscesses Cont IV abx wound culture Supp care Pain control IV fluids Wound care per Surgery ICD Codes: L02.411 - Cutaneous abscess of right axilla; L02.412 - Cutaneous abscess of left axilla SNOMED: 23711303 (2) Diabetes mellitus type 2 in obese Assessment & Plan: Hold metformin Cont insulin sliding scale ICD Codes: E11.69 - Type 2 diabetes mellitus with other specified complication ; E66.9 - Obesity, unspecified SNOMED: 69921187 (3) HTN (hypertension) Assessment & Plan: Cont all 3 BP meds as inpatient ICD Codes: I10 - Essential (primary) hypertension SNOMED: 18478145 (4) Morbid obesity due to excess calories Assessment & Plan: Stable ICD Codes: E66.01 - Morbid (severe) obesity due to excess calories SNOMED: 145874881 Subjective Date patient seen: Oct 01, 2016 Time patient seen: 16:13 ROS Limited/Unobtainable: No Allergies: Coded Allergies: CODEINE (Verified Allergy, Severe, 09/28/16) vomiting Subjective s/p debridement of bilateral axillary abscesses POD#2, no acute events overnight , no fevers/chills, pain controlled. Tolerated abx, no chest pain or dyspnea, no n/v Objective Last 24 Hour Vital Signs Date Time Temp Pulse Resp B/P Pulse Ox O2 Delivery O2 Flow Rate FiO2 10/01/16 12:00 97.2 78 20 146/82 96 Room Air 10/01/16 09:57 77 132/79 10/01/16 09:48 77 132/79 10/01/16 09:47 132/79 10/01/16 08:00 96.8 75 20 145/95 97 Room Air 10/01/16 04:00 97.5 80 18 132/75 94 Room Air 10/01/16 00:11 97.9 85 19 130/70 93 Room Air 09/30/16 23:01 97.9 09/30/16 20:07 98.1 90 18 132/78 91 Room Air Intake and Output 09/30/16 10/01/16 19:00 07:00 Intake Total 1350 ml 850 ml Output Total 190 ml 80 ml Balance 1160 ml 770 ml Intake Oral 800 ml 240 ml IV Total 550 ml 610 ml Drainage Total 190 ml 80 ml # Voids 3 2 Height (Feet): 5 Height (Inches): 4.00 Weight (Pounds): 257 Objective General: alert, cooperative, no distress, appears stated age Head: normocephalic, without obvious abnormality, atraumatic Eyes: conjunctivae/corneas clear. PERRL, EOM's intact Throat: lips, mucosa, and tongue normal. MMM Neck: supple, symmetrical, trachea midline, and no JVD Lungs: clear to auscultation bilaterally Heart: regular rate and rhythm, S1, S2 normal, no murmur, click, rub or gallop Abdomen: soft, non-tender, non-distended, bowel sounds normal; no masses or organomegaly Extremities: axillary dressings c/d/i with wound vacs in both axillae Pulses: 2+ and symmetric Skin: skin color, texture, turgor normal; no rashes or lesions Neurologic: grossly normal, no focal deficits EMIL NAVARRO Oct 01, 2016 16:14
[2016-10-01] MEDS ORDERED: Magnesium Citrate Liq Btl ORAL ONE (16:15)
[2016-10-01] MEDS: Montelukast 10mg tablet ORAL SCH (17:08)
[2016-10-02 00:05] VITALS: BP 138/73
[2016-10-02 04:32] VITALS: BP 140/80
[2016-10-02] MEDS: ceFAZolin 1gm in D5W 55ml IVPB SCH ×3 (06:04→22:24)
[2016-10-02] MEDS: NovoLOG Insulin Flexpen SUBQ SCH ×4 (06:07→21:00)
[2016-10-02] MEDS: Heparin 5000 units/ml inj SUBQ SCH ×3 (06:08→22:26)
[2016-10-02 08:00] VITALS: BP 143/92
[2016-10-02] MEDS: Losartan 50mg tab ORAL SCH (08:26)
[2016-10-02] MEDS: Docusate 100mg cap ORAL SCH ×2 (08:26→21:00)
[2016-10-02 12:00] VITALS: BP 130/71
--- NOTE | 2016-10-02 15:57 | General Progress Note ---
Assessment/Plan Problem List: (1) Abscesses of both axillae Assessment & Plan: s/p I+D of bilateral axillary abscesses Cont IV abx wound culture Supp care Pain control IV fluids Wound care per Surgery ICD Codes: L02.411 - Cutaneous abscess of right axilla; L02.412 - Cutaneous abscess of left axilla SNOMED: 32147067 (2) Diabetes mellitus type 2 in obese Assessment & Plan: Hold metformin Cont insulin sliding scale ICD Codes: E11.69 - Type 2 diabetes mellitus with other specified complication ; E66.9 - Obesity, unspecified SNOMED: 50691579 (3) HTN (hypertension) Assessment & Plan: Cont all 3 BP meds as inpatient ICD Codes: I10 - Essential (primary) hypertension SNOMED: 60590371 (4) Morbid obesity due to excess calories Assessment & Plan: Stable ICD Codes: E66.01 - Morbid (severe) obesity due to excess calories SNOMED: 505601450 Subjective Date patient seen: Oct 02, 2016 Time patient seen: 15:57 ROS Limited/Unobtainable: No Allergies: Coded Allergies: CODEINE (Verified Allergy, Severe, 09/28/16) vomiting Subjective s/p debridement of bilateral axillary abscesses POD#3, no acute events overnight , no fevers/chills, pain controlled. Tolerated abx, no chest pain or dyspnea, no n/v Objective Last 24 Hour Vital Signs Date Time Temp Pulse Resp B/P Pulse Ox O2 Delivery O2 Flow Rate FiO2 10/02/16 12:00 97.7 87 19 130/71 95 Room Air 10/02/16 08:26 143/92 10/02/16 08:26 84 143/92 10/02/16 08:00 98.1 84 20 143/92 94 Room Air 10/02/16 04:32 98.2 72 17 140/80 95 Room Air 10/02/16 00:05 100.6 82 19 138/73 96 Room Air 10/01/16 20:34 97.9 86 19 143/75 96 Room Air 10/01/16 16:00 97.7 82 20 140/79 97 Room Air Intake and Output 10/01/16 10/02/16 19:00 07:00 Intake Total 800 ml 1980 ml Output Total 190 ml Balance 610 ml 1980 ml Intake Oral 550 ml 480 ml IV Total 250 ml 1500 ml Other 190 ml # Voids 3 2 # Bowel Movements 1 Height (Feet): 5 Height (Inches): 4.00 Weight (Pounds): 257 Objective General: alert, cooperative, no distress, appears stated age Head: normocephalic, without obvious abnormality, atraumatic Eyes: conjunctivae/corneas clear. PERRL, EOM's intact Throat: lips, mucosa, and tongue normal. MMM Neck: supple, symmetrical, trachea midline, and no JVD Lungs: clear to auscultation bilaterally Heart: regular rate and rhythm, S1, S2 normal, no murmur, click, rub or gallop Abdomen: soft, non-tender, non-distended, bowel sounds normal; no masses or organomegaly Extremities: axillary dressings c/d/i with wound vacs in both axillae Pulses: 2+ and symmetric Skin: skin color, texture, turgor normal; no rashes or lesions Neurologic: grossly normal, no focal deficits EMIL NAVARRO Oct 02, 2016 15:57
[2016-10-02 16:00] VITALS: BP 133/83
[2016-10-02] MEDS: Montelukast 10mg tablet ORAL SCH (17:22)
[2016-10-02 20:00] VITALS: BP 128/73
[2016-10-03] VITALS: BP 131/75
[2016-10-03 04:00] VITALS: BP 126/81
[2016-10-03] MEDS: ceFAZolin 1gm in D5W 55ml IVPB SCH ×3 (06:27→22:08)
[2016-10-03] MEDS: NovoLOG Insulin Flexpen SUBQ SCH ×4 (06:28→21:00)
[2016-10-03] MEDS: Heparin 5000 units/ml inj SUBQ SCH ×3 (06:29→22:00)
[2016-10-03 08:41] VITALS: BP 126/75
[2016-10-03] MEDS: Docusate 100mg cap ORAL SCH ×2 (09:00→22:07)
[2016-10-03] MEDS: Losartan 50mg tab ORAL SCH (09:10)
--- NOTE | 2016-10-03 11:01 | General Progress Note ---
Assessment/Plan Problem List: (1) Abscesses of both axillae Assessment & Plan: s/p I+D of bilateral axillary abscesses Cont IV abx wound culture Supp care Pain control IV fluids Wound care per Surgery ICD Codes: L02.411 - Cutaneous abscess of right axilla; L02.412 - Cutaneous abscess of left axilla SNOMED: 88130181 (2) Diabetes mellitus type 2 in obese Assessment & Plan: Hold metformin Cont insulin sliding scale ICD Codes: E11.69 - Type 2 diabetes mellitus with other specified complication ; E66.9 - Obesity, unspecified SNOMED: 66002897 (3) HTN (hypertension) Assessment & Plan: Cont all 3 BP meds as inpatient ICD Codes: I10 - Essential (primary) hypertension SNOMED: 58997983 (4) Morbid obesity due to excess calories Assessment & Plan: Stable ICD Codes: E66.01 - Morbid (severe) obesity due to excess calories SNOMED: 921845327 Subjective Date patient seen: Oct 03, 2016 Time patient seen: 11:01 ROS Limited/Unobtainable: No Allergies: Coded Allergies: CODEINE (Verified Allergy, Severe, 09/28/16) vomiting Subjective s/p debridement of bilateral axillary abscesses POD#4, no acute events overnight , no fevers/chills, pain controlled. Tolerated abx, no chest pain or dyspnea, no n/v Objective Last 24 Hour Vital Signs Date Time Temp Pulse Resp B/P Pulse Ox O2 Delivery O2 Flow Rate FiO2 10/03/16 09:10 126/75 10/03/16 09:10 86 126/75 10/03/16 08:41 98.1 86 20 126/75 98 Room Air 10/03/16 04:00 97.4 82 18 126/81 98 Room Air 10/03/16 00:00 97.9 85 17 131/75 96 Room Air 10/02/16 20:00 98.4 81 16 128/73 94 Room Air 10/02/16 16:00 98.2 99 20 133/83 96 Room Air 10/02/16 12:00 97.7 87 19 130/71 95 Room Air Intake and Output 10/02/16 10/03/16 19:00 07:00 Intake Total 850 ml 120 ml Output Total 210 ml Balance 850 ml -90 ml Intake Oral 850 ml 120 ml Other 210 ml # Voids 2 2 Height (Feet): 5 Height (Inches): 4.00 Weight (Pounds): 257 Objective General: alert, cooperative, no distress, appears stated age Head: normocephalic, without obvious abnormality, atraumatic Eyes: conjunctivae/corneas clear. PERRL, EOM's intact Throat: lips, mucosa, and tongue normal. MMM Neck: supple, symmetrical, trachea midline, and no JVD Lungs: clear to auscultation bilaterally Heart: regular rate and rhythm, S1, S2 normal, no murmur, click, rub or gallop Abdomen: soft, non-tender, non-distended, bowel sounds normal; no masses or organomegaly Extremities: axillary dressings c/d/i with wound vacs in both axillae Pulses: 2+ and symmetric Skin: skin color, texture, turgor normal; no rashes or lesions Neurologic: grossly normal, no focal deficits EMIL NAVARRO Oct 03, 2016 11:01
--- NOTE | 2016-10-03 11:19 | General Progress Note ---
Progress Note Progress Note Pt seen and examined. POD# 4 and doing well. To OR tomorrow for wound closure. HANSEL Bhardwaj MD Oct 03, 2016 11:19
[2016-10-03 12:00] VITALS: BP 112/78
[2016-10-03] MEDS ORDERED: NS 550ML IV ONE (15:02)
[2016-10-03 16:00] VITALS: BP 120/76
[2016-10-03] MEDS: Montelukast 10mg tablet ORAL SCH (16:44)
[2016-10-03 20:16] VITALS: BP 147/93
[2016-10-04] VITALS (14 sets, daily range): BP systolic 115–198; BP diastolic 65–98
[2016-10-04] MEDS: Heparin 5000 units/ml inj SUBQ SCH ×2 (05:22→22:05)
[2016-10-04] MEDS: ceFAZolin 1gm in D5W 55ml IVPB SCH ×3 (05:27→22:04)
[2016-10-04] MEDS: NovoLOG Insulin Flexpen SUBQ SCH ×4 (05:30→22:15)
--- NOTE | 2016-10-04 08:51 | Pre-Procedure Note/Attestation ---
Pre-Procedure Note/Attestation Complete Prior to Procedure Planned Procedure: bilateral Procedure Narrative: Bilateral axillary wound closure and bilateral breast debridement with flap closure Indications for Procedure Pre-Operative Diagnosis: Bilateral infected axillary tissue Attestation I attest that I discussed the nature of the procedure; its benefits; risks and complications; and alternatives (and the risks and benefits of such alternatives ), prior to the procedure, with the patient (or the patient's legal auto claim representative). I attest that, if there was a reasonable possibility of needing a blood transfusion, the patient (or the patient's legal auto claim representative) was given the [facility] standardized written summary, pursuant to the Maul[place] Blood Safety Act ([place] Health and Safety Code # 1645, as amended). I attest that I re-evaluated the patient just prior to the surgery and that there has been no change in the patient's H&P, except as documented below: HANSEL FONTANEZ Oct 04, 2016 08:51
[2016-10-04] MEDS ORDERED: Lidocaine 1% 10mg/ml/Epi 0.005mg/ml 30ml vial INJ ONE (08:58)
[2016-10-04] MEDS ORDERED: Propofol 10mg/ml 20ml IV ONE (08:58)
[2016-10-04] MEDS ORDERED: Bacitracin 50000 Units Vial ONE (08:59)
[2016-10-04] MEDS ORDERED: Ketorolac 30mg Inj ONE (09:00)
[2016-10-04] MEDS ORDERED: NS Irrig 1000ml ONE (09:00)
[2016-10-04] MEDS ORDERED: Dexamethasone 4mg/ml vial ONE (09:00)
[2016-10-04] MEDS ORDERED: Lidocaine 1% MPF 10mg/ml 5ml ONE (09:00)
[2016-10-04] MEDS: Docusate 100mg cap ORAL SCH ×2 (09:00→22:05)
[2016-10-04] MEDS ORDERED: fentaNYL 250mcg/5ml ONE (09:00)
[2016-10-04] MEDS ORDERED: LR 1000ml ONE (09:00)
[2016-10-04] MEDS ORDERED: Midazolam 2mg/2ml Inj ONE (09:00)
[2016-10-04] MEDS ORDERED: Zemuron 50mg/5ml Inj IV ONE (09:00)
[2016-10-04] MEDS ORDERED: Metoclopramide 10mg/2ml Inj ONE (09:00)
[2016-10-04] MEDS ORDERED: Labetalol 5mg/ml 20ml vial IV ONE (09:00)
[2016-10-04] MEDS ORDERED: Sterile Water Irrig 1000ml IRRIG ONE (09:00)
[2016-10-04] MEDS ORDERED: Neostigmine 1mg/ml 10ml Inj ONE (09:00)
[2016-10-04] MEDS ORDERED: Glycopyrrolate 0.2mg/ml 1ml Vial ONE (09:00)
[2016-10-04] MEDS ORDERED: Succinylcholine 20mg/ml 10ml vial ONE (09:00)
--- NOTE | 2016-10-04 09:04 | Anethesia Preoperative Eval ---
Anesthesia Pre-op PMH/ROS General Date of Evaluation: Oct 04, 2016 Anesthesiologist: Ty ASA Score: ASA 3 Mallampati Score Class I : Soft palate, uvula, fauces, pillars visible Class II: Soft palate, uvula, fauces visible Class III: Soft palate, base of uvula visible Class IV: Only hard plate visible Mallampati Classification: Class III Surgeon: Hugo Diagnosis: HIdradenitis suppurativa Surgical Procedure: Bialteral axillary I&D and wound closure Anesthesia History: none Family History: no anesthesia problems Allergies: Coded Allergies: CODEINE (Verified Allergy, Severe, 09/28/16) vomiting Past Medical History Cardiovascular: Reports: HTN, Denies: CAD, NC, arrhythmia, other, valve dz Pulmonary: Reports: OWEN, Denies: COPD, asthma, other Gastrointestinal/Genitourinary: Reports: GERD, Denies: CRI, ESRD, other Neurologic/Psychiatric: Denies: CVA, TIA, dementia, depression/anxiety, other Endocrine: Denies: DM, hypothyroidism, other, steroids HEENT: Denies: NAVAJO (L), NAVAJO (R), cataract (L), cataract (R), glaucoma, other Hematology/Immune: Reports: anemia - chronic, Denies: DVT, bleeding disorder, other Musculoskeletal/Integumentary: Reports: other - HS, Denies: DDD, DJD, OA, RA, edema Other: obesity - morbid PSxH Narrative: lap marcelle, DIRK, I&D for HS Anesthesia Pre-op Phys. Exam Physician Exam Last Vital Signs Date Time Temp Pulse Resp B/P Pulse Ox O2 Delivery O2 Flow Rate FiO2 10/04/16 08:00 97.7 101 20 161/92 97 Room Air 09/29/16 18:05 3.0 Constitutional: NAD Cardiovascular: other - tachy Respiratory: other - dimished breath sounds bilaterally Airway Exam Mallampati Score: Class III MO: limited ROM: full Teeth: intact Anesthesia Pre-op A/P Labs see chart Studies Pre-op Studies: EKG - sr Risk Assessment & Plan Assessment: ASA III Plan: GA Status Change Before Surgery: No Pre-Antibiotics Drug: SAILAJA BORRERO M.D. Oct 04, 2016 09:04
[2016-10-04] MEDS ORDERED: LR 1000ml 1,000 ML IVLG SCH (09:54)
--- NOTE | 2016-10-04 09:54 | Immediate Post-Op Evaluation ---
Immediate Post-Op Evalulation Immediate Post-Op Evalulation Procedure: Bilateral axillay wound I&D and partial wound closure Date of Evaluation: Oct 04, 2016 Time of Evaluation: 12:56 IV Fluids: 1.5L Blood Products: 0 Estimated Blood Loss: 100 Urinary Output: 250 Blood Pressure Systolic: 161 Blood Pressure Diastolic: 89 Pulse Rate: 108 Respiratory Rate: 16 O2 Sat by Pulse Oximetry: 100 Temperature (Fahrenheit): 97.3 Pain Score (1-10): 0 Nausea: No Vomiting: No Complications 0 Patient Status: awake, reacts, patent, none Hydration Status: adequate Drug: Ancef 2g Given Within 1 Hr of Incision: Yes Time Given: 09:35 SAILAJA WARE M.D. Oct 04, 2016 09:54
[2016-10-04] MEDS ORDERED: DiphenhydrAMINE 50mg/ml Inj IVP PRN (10:00)
[2016-10-04] MEDS ORDERED: Metoclopramide 10mg/2ml Inj IVP PRN (10:00)
[2016-10-04] MEDS ORDERED: fentaNYL 100 mcg/2 mL IV PRN (10:00)
--- NOTE | 2016-10-04 10:39 | Operative Note - PDOC ---
Operative Note Operative Note Pre-op Diagnosis: Bilateral infected breast tissue and open axillary wounds Procedure: Closure of bilateral axillary tissue and bilateral breast tissue excision and flap closure Post-op Diagnosis: same as pre-op Surgeon: Hugo Application Software Developer: Carmen Anesthesia: general Specimen: yes Complications: none Condition: stable Estimated Blood Loss: minimal Drains: ANTONIO Implant(s) used?: No HANSEL FONTANEZ Oct 04, 2016 10:39
[2016-10-04] MEDS ORDERED: PCA HYDROmorphone 1mg/ml 30 ML IV PRN (11:20)
[2016-10-04] MEDS ORDERED: Rate Change PCA 1 Each MISC PRN (11:20)
[2016-10-04] MEDS ORDERED: Surgicel 4in x 8in TOPIC ONE ×3 (11:21→11:27)
[2016-10-04 11:24] LABS: MEAN CORPUSCULAR HGB CONC 32.6 G/DL (32.0-36.0); MEAN CORPUSCULAR VOLUME 92 FL (80-99); MEAN PLATELET VOLUME 8.6 FL (6.5-10.1); PLATELET COUNT 273 K/UL (150-450); RED BLOOD COUNT 3.33 M/UL (4.20-5.40); WHITE BLOOD COUNT 10.7 K/UL (4.8-10.8)
[2016-10-04 11:47] LABS: ANISOCYTOSIS 1+; BAND NEUTROPHILS % (MANUAL) 0 % (0-8); BASOPHILS % (MANUAL) 0 % (0-2); EOSINOPHILS % (MANUAL) 3 % (0-3); HYPOCHROMASIA 1+; LYMPHOCYTES % (MANUAL) 15 % (20-45); NEUTROPHILS % (MANUAL) 76 % (45-75); PLATELET ESTIMATE ADEQUATE; PLATELET MORPHOLOGY NORMAL; TOTAL CELLS COUNTED 100
--- NOTE | 2016-10-04 14:44 | General Progress Note ---
Assessment/Plan Problem List: (1) Abscesses of both axillae Assessment & Plan: s/p I+D of bilateral axillary abscesses Cont IV abx wound culture Supp care Pain control IV fluids Wound care per Surgery ICD Codes: L02.411 - Cutaneous abscess of right axilla; L02.412 - Cutaneous abscess of left axilla SNOMED: 43699234 (2) Diabetes mellitus type 2 in obese Assessment & Plan: Hold metformin Cont insulin sliding scale ICD Codes: E11.69 - Type 2 diabetes mellitus with other specified complication ; E66.9 - Obesity, unspecified SNOMED: 01061167 (3) HTN (hypertension) Assessment & Plan: Cont all 3 BP meds as inpatient ICD Codes: I10 - Essential (primary) hypertension SNOMED: 37711103 (4) Morbid obesity due to excess calories Assessment & Plan: Stable ICD Codes: E66.01 - Morbid (severe) obesity due to excess calories SNOMED: 535095204 Subjective Date patient seen: Oct 04, 2016 Time patient seen: 14:44 ROS Limited/Unobtainable: No Allergies: Coded Allergies: CODEINE (Verified Allergy, Severe, 09/28/16) vomiting Subjective s/p debridement of bilateral axillary abscesses POD#5, no acute events overnight , no fevers/chills, pain controlled. Tolerated abx, no chest pain or dyspnea, no n/v Objective Last 24 Hour Vital Signs Date Time Temp Pulse Resp B/P Pulse Ox O2 Delivery O2 Flow Rate FiO2 10/04/16 14:25 13 10/04/16 14:15 97.8 97 13 145/78 95 Nasal Cannula 3.0 10/04/16 14:10 16 10/04/16 14:10 97.8 10/04/16 14:00 82 19 138/81 95 Nasal Cannula 3.0 10/04/16 13:55 19 10/04/16 13:45 89 16 137/79 100 Nasal Cannula 3.0 10/04/16 13:40 22 10/04/16 13:30 86 24 155/84 98 Nasal Cannula 3.0 10/04/16 13:15 99 23 172/93 98 Nasal Cannula 3.0 10/04/16 13:00 97 25 171/94 100 Simple Mask 6.0 10/04/16 12:57 108 16 100 10/04/16 12:55 105 14 174/90 97 Simple Mask 6.0 10/04/16 12:51 97.3 109 15 198/98 97 Simple Mask 6.0 10/04/16 08:00 97.7 101 20 161/92 97 Room Air 10/04/16 04:00 97.5 95 19 144/75 97 Room Air 10/04/16 00:23 98.4 108 18 115/69 100 Room Air 10/03/16 20:16 98.4 114 19 147/93 95 Room Air 10/03/16 16:00 98.2 102 18 120/76 95 Room Air Intake and Output 10/03/16 10/04/16 19:00 07:00 Intake Total 840 ml Output Total 70 ml 30 ml Balance 770 ml -30 ml Intake Oral 840 ml Other 70 ml 30 ml # Voids 4 2 # Bowel Movements 1 Laboratory Tests 10/04/16 11:05: White Blood Count 10.7, Red Blood Count 3.33L, Hemoglobin 10.0L, Hematocrit 30.6L, Mean Corpuscular Volume 92, Mean Corpuscular Hemoglobin 30.0, Mean Corpuscular Hemoglobin Concent 32.6, Red Cell Distribution Width 14.0, Platelet Count 273, Mean Platelet Volume 8.6, Neutrophils (%) (Auto) , Lymphocytes (%) ( Auto) , Monocytes (%) (Auto) , Eosinophils (%) (Auto) , Basophils (%) (Auto) , Differential Total Cells Counted 100, Neutrophils % (Manual) 76H, Lymphocytes % (Manual) 15L, Monocytes % (Manual) 6, Eosinophils % (Manual) 3, Basophils % ( Manual) 0, Band Neutrophils 0, Platelet Estimate Adequate, Platelet Morphology Normal, Hypochromasia 1+, Anisocytosis 1+ Height (Feet): 5 Height (Inches): 4.00 Weight (Pounds): 257 Objective General: alert, cooperative, no distress, appears stated age Head: normocephalic, without obvious abnormality, atraumatic Eyes: conjunctivae/corneas clear. PERRL, EOM's intact Throat: lips, mucosa, and tongue normal. MMM Neck: supple, symmetrical, trachea midline, and no JVD Lungs: clear to auscultation bilaterally Heart: regular rate and rhythm, S1, S2 normal, no murmur, click, rub or gallop Abdomen: soft, non-tender, non-distended, bowel sounds normal; no masses or organomegaly Extremities: axillary dressings c/d/i with wound vacs in both axillae Pulses: 2+ and symmetric Skin: skin color, texture, turgor normal; no rashes or lesions Neurologic: grossly normal, no focal deficits EMIL NAVARRO Oct 04, 2016 14:44
[2016-10-04] MEDS: Losartan 50mg tab ORAL SCH (17:08)
[2016-10-04] MEDS: Montelukast 10mg tablet ORAL SCH (17:11)
--- NOTE | 2016-10-04 18:30 | Operative Note - Dictated ---
DATE OF OPERATION: 10/04/2016 PREOPERATIVE DIAGNOSES: 1. Bilateral open axillary wound. 2. Bilateral lower breast fold infection. POSTOPERATIVE DIAGNOSES: 1. Bilateral open axillary wound. 2. Bilateral lower breast fold infection. PROCEDURES: 1. Preparation of left axillary wound for flap closure with wound measuring 140 square cm. 2. Reelevation of a left superior chest wall flap for closure of left axillary wound. 3. Reelevation of the inferior chest wall flap for closure of left axillary wound. 4. Preparation of right axillary wound for flap closure with wound measuring 180 square cm. 5. Reelevation of right superior chest wall flap for closure of right axillary wound. 6. Reelevation of right inferior chest wall flap for closure of right axillary wound. 7. Debridement of left breast inferior/lower pole. 8. Phani flap elevation for closure of left breast defect. 9. Debridement of right inferior breast lower pole tissue. 10. Phani flap elevation for closure of right inferior breast wound. SURGEON: Arthur Arias M.D. PATROL OFFICER: Nohemi Morales M.D. ANESTHESIA: General. COMPLICATIONS: None. DRAINS: One ANTONIO in each axilla. SPECIMEN: Bilateral lower pole breast tissue mass. DISPOSITION: Stable to the recovery room. INDICATIONS FOR SURGERY: This is a 55-year-old female, who is now five days postoperative from bilateral axillary radical excision of infected tissue with flap elevation who presents to the operating room for definitive flap inset and closure. In addition, she also has bilateral lower breast pole infections, which will require debridement and closure with a flap elevation. She understood the risks and benefits of surgery and agreed to proceed. DETAILS OF THE OPERATION: The patient was brought to the operating room and laid in the supine position on the operating table. Her bilateral chest and axillae were prepped and draped in a sterile and usual fashion. We first began by debriding the left axillary wound to prepare it for flap inset. The wound was debrided of its nonviable tissue and pulse lavage irrigation was used to then irrigate the wound and hemostasis was then achieved with the left axillary wound preparation for flap inset completed. We had to re-elevate the left superior chest wall flap that had been previously elevated based off of perforators of the thoracoacromial artery. The flap was fully mobilized and it was noted that it allowed for further closure of the wound, however, we needed to also mobilize the inferior chest wall flap that had been previously elevated based off of perforators of the thoracodorsal artery with both flaps fully mobilized with proximal and distal incisions made on both flaps that the wound could be definitively closed. The wound was closed over a size 15 ANTONIO by reapproximating the superior inferior chest wall flaps using #0 and 2-0 Vicryl sutures and a combination of harinder with #0 Prolene sutures was used to close the skin. In a similar fashion, the larger right axillary wound was approached with debridement of the nonviable tissue and the pulse lavage irrigation to prepare the wound for flap transfer. Similarly, the chest wall flap on the superior aspect as well as the inferior aspect of the wound had to both be reelevated. First the superior flap was reelevated off of the deltoid tissue with proximal and distal incisions made to fully mobilize the flap of the perforators coming off the thoracoacromial artery to perfuse this flap and an inferior chest wall flap was similarly elevated off the latissimus muscle with proximal and distal incisions made with perforators off of the thoracodorsal artery mobilizing the flap. With both flaps fully mobilized, the wound was then again inspected for any further bleeding. Hemostasis was then further achieved. A ANTONIO drain was placed in both the inferior and superior chest wall flaps were brought together in opposition using #0 and 2-0 Vicryl sutures and a combination of harinder with #0 Prolene and 2-0 Prolene sutures were used to close the skin. We then turned our attention to the bilateral breast wound. The left breast lower pole had an area of infection, which was marked with an ellipse and similarly on the right side. A diagonal ellipse was designed in the lower pole defining the areas that needed to be debrided. We used a #10 blade to make a skin incision on the left side and an electrocautery was then used to fully radically excise the tissue all way down to the level of healthy breast tissue. The wound was copiously with pulse lavage. The wound could not be closed without tension. As such, a Phani flap that was a lower breast fold tissue flap off the chest wall was elevated with perforators off the superior epigastric artery perfusing this flap. The flap was fully mobilized, and once the wound was irrigated again with pulse lavage and hemostasis was achieved. A closure was pursued using #0 and 2-0 Vicryl sutures and a 3-0 Monocryl to close the skin. In a similar fashion, a diagonal elliptical incision was made on the right lower breast pole. Electrocautery was then used to radically excise the infected tissue in a similar fashion. A Phani flap was elevated off of the lower breast and superior chest wall to allow for a tension-free repair with perforators of the superior epigastric artery perfusing this flap with proximal and distal incisions made on the flap as well as on the other side. A tension-free repair was pursued using #0 and 2-0 Vicryl sutures and a 3-0 Monocryl was used to close the skin. Dermabond was then applied to both breast incisions and dressings were applied to both axillae as well as breast wounds. The patient tolerated the procedure well. There were no complications. Arthur Arias M.D. DR: JACKY JOB#: [id number] CC:
[2016-10-04] MEDS: PCA shift volume MISC SCH (19:00)
[2016-10-04] MEDS ORDERED: Zolpidem 5mg tab ORAL PRN (21:00)
[2016-10-05] VITALS: BP 103/55
[2016-10-05 04:00] VITALS: BP 139/71
--- NOTE | 2016-10-05 06:14 | 48 Hour Post Anesthesia Eval ---
Post Anesthesia Evaluation Procedure: Bilateral axillay wound I&D and partial wound closure Date of Evaluation: Oct 05, 2016 Time of Evaluation: 07:05 Blood Pressure Systolic: 139 0: 71 Pulse Rate: 100 Respiratory Rate: 19 Temperature (Fahrenheit): 97.8 O2 Sat by Pulse Oximetry: 94 Airway: patent Nausea: No Vomiting: No Pain Intensity: 2 Hydration Status: adequate Cardiopulmonary Status: Stable Mental Status/LOC: patient returned to baseline Follow-up Care/Observations: As per surgery Post-Anesthesia Complications: No anesthetic complication Follow-up care needed: N/A SANTANA DEL CASTILLO M.D. Oct 05, 2016 06:14
[2016-10-05] MEDS: Heparin 5000 units/ml inj SUBQ SCH ×3 (06:31→20:43)
[2016-10-05] MEDS: NovoLOG Insulin Flexpen SUBQ SCH ×4 (06:32→20:42)
[2016-10-05] MEDS: ceFAZolin 1gm in D5W 55ml IVPB SCH ×3 (06:33→20:41)
[2016-10-05] MEDS: PCA shift volume MISC SCH (07:02)
[2016-10-05] MEDS: Docusate 100mg cap ORAL SCH ×2 (08:01→20:41)
[2016-10-05] MEDS: Losartan 50mg tab ORAL SCH (08:02)
[2016-10-05 08:17] VITALS: BP 135/77
[2016-10-05] MEDS ORDERED: Milk of Magnesia 30ml Ud ORAL PRN (11:15)
[2016-10-05] MEDS: Norco 10mg/325mg tab ORAL PRN ×2 (11:42→21:25)
[2016-10-05 11:52] VITALS: BP 124/83
--- NOTE | 2016-10-05 14:19 | General Progress Note ---
Assessment/Plan Problem List: (1) Abscesses of both axillae Assessment & Plan: s/p I+D of bilateral axillary abscesses Cont IV abx wound culture Supp care Pain control IV fluids Wound care per Surgery ICD Codes: L02.411 - Cutaneous abscess of right axilla; L02.412 - Cutaneous abscess of left axilla SNOMED: 92721940 (2) Diabetes mellitus type 2 in obese Assessment & Plan: Hold metformin Cont insulin sliding scale ICD Codes: E11.69 - Type 2 diabetes mellitus with other specified complication ; E66.9 - Obesity, unspecified SNOMED: 13119539 (3) HTN (hypertension) Assessment & Plan: Cont all 3 BP meds as inpatient ICD Codes: I10 - Essential (primary) hypertension SNOMED: 46204519 (4) Morbid obesity due to excess calories Assessment & Plan: Stable ICD Codes: E66.01 - Morbid (severe) obesity due to excess calories SNOMED: 504190657 Subjective Date patient seen: Oct 05, 2016 Time patient seen: 14:18 ROS Limited/Unobtainable: No Allergies: Coded Allergies: CODEINE (Verified Allergy, Severe, 09/28/16) vomiting Subjective s/p debridement of bilateral axillary abscesses POD#6, s/p additional surgery POD#1, no acute events overnight, no fevers/chills, pain controlled. Tolerated abx, no chest pain or dyspnea, no n/v Objective Last 24 Hour Vital Signs Date Time Temp Pulse Resp B/P Pulse Ox O2 Delivery O2 Flow Rate FiO2 10/05/16 11:52 97.9 85 20 124/83 99 Room Air 10/05/16 08:17 98.1 87 20 135/77 97 Room Air 10/05/16 08:02 135/77 10/05/16 08:01 87 135/77 10/05/16 08:00 17 10/05/16 06:14 100 19 94 10/05/16 04:00 97.8 100 19 139/71 94 Room Air 10/05/16 04:00 16 10/05/16 00:00 98.3 109 19 103/55 98 Room Air 10/05/16 00:00 16 10/04/16 20:00 98.5 114 20 120/65 93 Room Air 10/04/16 20:00 16 10/04/16 20:00 16 10/04/16 17:08 161/73 7/17/17 17:07 111 161/73 10/04/16 16:52 97.7 10/04/16 15:30 16 10/04/16 15:30 98.4 109 18 150/91 94 3.0 10/04/16 14:30 97.7 111 16 119/73 94 3.0 10/04/16 14:25 13 Intake and Output 10/04/16 10/05/16 19:00 07:00 Intake Total 2575 ml 255 ml Output Total 1255 ml 900 ml Balance 1320 ml -645 ml Intake Oral 720 ml 200 ml IV Total 1855 ml 55 ml Output Urine Total 1100 ml 900 ml Drainage Total 55 ml Estimated Blood Loss 100 ml # Voids 1 Height (Feet): 5 Height (Inches): 4.00 Weight (Pounds): 257 Objective General: alert, cooperative, no distress, appears stated age Head: normocephalic, without obvious abnormality, atraumatic Eyes: conjunctivae/corneas clear. PERRL, EOM's intact Throat: lips, mucosa, and tongue normal. MMM Neck: supple, symmetrical, trachea midline, and no JVD Lungs: clear to auscultation bilaterally Heart: regular rate and rhythm, S1, S2 normal, no murmur, click, rub or gallop Abdomen: soft, non-tender, non-distended, bowel sounds normal; no masses or organomegaly Extremities: axillary dressings c/d/i with wound vacs in both axillae Pulses: 2+ and symmetric Skin: skin color, texture, turgor normal; no rashes or lesions Neurologic: grossly normal, no focal deficits EMIL NAVARRO Oct 05, 2016 14:19
[2016-10-05 15:41] VITALS: BP 104/66
[2016-10-05] MEDS: Montelukast 10mg tablet ORAL SCH (16:49)
[2016-10-05 20:39] VITALS: BP 144/71
[2016-10-06] MEDS: ceFAZolin 1gm in D5W 55ml IVPB SCH ×2 (06:04→13:18)
[2016-10-06] MEDS: Heparin 5000 units/ml inj SUBQ SCH ×3 (06:05→22:42)
[2016-10-06] MEDS: NovoLOG Insulin Flexpen SUBQ SCH ×2 (06:38→11:30)
--- NOTE | 2016-10-06 07:49 | Diagnostic Imaging Report ---
APPROVED REPORT CPT Code: 06424 Present Symptoms Comments: R/O DVT BILATERAL: Imaging reveals a patent deep venous system bilaterally. There is no evidence of thrombus within the femoral, popliteal or tibial segments. The greater saphenous veins are also within normal limits. Doppler indicates normal spontaneous flow within these segments.
[2016-10-06 08:00] VITALS: BP 112/77
[2016-10-06] MEDS: Docusate 100mg cap ORAL SCH ×2 (08:38→20:45)
[2016-10-06] MEDS: Losartan 50mg tab ORAL SCH (08:39)
[2016-10-06 09:43] VITALS: BP 126/70
[2016-10-06 12:00] VITALS: BP 113/75
[2016-10-06 16:00] VITALS: BP 124/80
[2016-10-06] MEDS: Montelukast 10mg tablet ORAL SCH (16:06)
[2016-10-06] MEDS ORDERED: Tubing IV Secondary IV ONE (17:04)
--- NOTE | 2016-10-06 17:39 | General Progress Note ---
Assessment/Plan Problem List: (1) Abscesses of both axillae Assessment & Plan: s/p I+D of bilateral axillary abscesses Cont IV abx wound culture Supp care Pain control IV fluids Wound care per Surgery ICD Codes: L02.411 - Cutaneous abscess of right axilla; L02.412 - Cutaneous abscess of left axilla SNOMED: 42086095 (2) Diabetes mellitus type 2 in obese Assessment & Plan: Hold metformin DC insulin sliding scale ICD Codes: E11.69 - Type 2 diabetes mellitus with other specified complication ; E66.9 - Obesity, unspecified SNOMED: 99836430 (3) HTN (hypertension) Assessment & Plan: Cont all 3 BP meds as inpatient ICD Codes: I10 - Essential (primary) hypertension SNOMED: 24600824 (4) Morbid obesity due to excess calories Assessment & Plan: Stable ICD Codes: E66.01 - Morbid (severe) obesity due to excess calories SNOMED: 957314154 Subjective Date patient seen: Oct 06, 2016 Time patient seen: 17:37 ROS Limited/Unobtainable: No Allergies: Coded Allergies: CODEINE (Verified Allergy, Severe, 09/28/16) vomiting Subjective s/p debridement of bilateral axillary abscesses POD#7, s/p additional surgery POD#2, no acute events overnight, no fevers/chills, pain controlled. Tolerated abx, no chest pain or dyspnea, no n/v pt states her BS was 122, was given 3units insulin per sliding scale, then felt nauseous and dizzy, was given OJ and then felt better. No BS was taken after she felt bad Objective Last 24 Hour Vital Signs Date Time Temp Pulse Resp B/P Pulse Ox O2 Delivery O2 Flow Rate FiO2 10/06/16 16:00 97.7 110 17 124/80 94 Room Air 10/06/16 12:00 99.0 113 20 113/75 94 Room Air 10/06/16 09:43 108 126/70 10/06/16 08:39 112/77 10/06/16 08:38 91 112/77 10/06/16 08:00 98.4 91 18 112/77 96 Room Air 10/05/16 22:24 98.2 10/05/16 20:39 98.2 67 19 144/71 92 Room Air Intake and Output 10/05/16 10/06/16 19:00 07:00 Intake Total 760 ml 295 ml Output Total 200 ml 90 ml Balance 560 ml 205 ml Intake Oral 760 ml 240 ml IV Total 55 ml Drainage Total 200 ml 90 ml Other 0 ml # Voids 3 Height (Feet): 5 Height (Inches): 4.00 Weight (Pounds): 257 Objective General: alert, cooperative, no distress, appears stated age Head: normocephalic, without obvious abnormality, atraumatic Eyes: conjunctivae/corneas clear. PERRL, EOM's intact Throat: lips, mucosa, and tongue normal. MMM Neck: supple, symmetrical, trachea midline, and no JVD Lungs: clear to auscultation bilaterally Heart: regular rate and rhythm, S1, S2 normal, no murmur, click, rub or gallop Abdomen: soft, non-tender, non-distended, bowel sounds normal; no masses or organomegaly Extremities: axillary dressings c/d/i with wound vacs in both axillae Pulses: 2+ and symmetric Skin: skin color, texture, turgor normal; no rashes or lesions Neurologic: grossly normal, no focal deficits EMIL NAVARRO Oct 06, 2016 17:39
[2016-10-06 20:00] VITALS: BP 128/88
[2016-10-06] MEDS: Norco 10mg/325mg tab ORAL PRN (20:45)
[2016-10-07 04:00] VITALS: BP 126/54
[2016-10-07] MEDS: Heparin 5000 units/ml inj SUBQ SCH ×2 (05:46→08:58)
[2016-10-07 08:00] VITALS: BP 119/84
[2016-10-07] MEDS ORDERED: Magnesium Citrate Liq Btl ORAL ONE (08:30)
[2016-10-07] MEDS: Docusate 100mg cap ORAL SCH (08:48)
[2016-10-07 08:49] VITALS: BP 119/84
[2016-10-07] MEDS: Losartan 50mg tab ORAL SCH (08:49)
--- NOTE | 2016-10-09 07:35 | Discharge Summary ---
Discharge Summary Hospital Course Date of Admission Sep 28, 2016 at 16:52 Date of Discharge Oct 07, 2016 at 10:30 Admitting Diagnosis hidradenitis HPI Pratimaavery Howard is a 55 year old female who was admitted on Sep 28, 2016 at 16:52 for Hidradenitis Hospital Course [id number] Discharge Discharge Disposition Patient was discharged to Home (01) Discharge Diagnoses: Sameera Syed NP Oct 09, 2016 07:35
--- NOTE | 2016-10-09 09:15 | Discharge Summary 2 SIG ---
DATE OF ADMISSION: 09/28/2016 DATE OF DISCHARGE: 10/07/2016 SURGEON: Arthur Arias M.D. BRIEF HOSPITAL COURSE: The patient is a 55-year-old morbidly obese female with history of hypertension, diabetes type 2, and hydradenitis for many years, presented to the ED complaining of tenderness and swelling on the bilateral axillae. The patient had longstanding history of hydradenitis and had previous surgery in the past. She had tried multiple courses of oral antibiotics, which provided little to no relief. Her pain was not relieved at home and she noted a pus-like material draining out from her right axilla. She was then admitted on 09/28/2016 and was started on IV antibiotics. Wound cultures were obtained. She was given IV hydration and pain control. She was seen by Dr. Arias and the patient will require radical excision with staged flap elevation and closure of the wounds. On 09/29/2016, she underwent radical excision of the right axillary tissue with elevation of the arm and chest wall flap. Wound VAC was then placed into the wound on both sides. Postoperatively, she continued with the wound VAC and was continued on IV antibiotics. On 10/04/2016, she underwent the second stage of the procedure and underwent debridement and closure of flap elevation. She tolerated the procedure well. She was continued on pain control, IV hydration, and IV antibiotics. Blood cultures did not isolate any growth. She had a venous duplex scan, which was negative for DVT. She was eventually discharged home to follow up as an outpatient. FINAL DIAGNOSES: 1. Abscess on both axillae, status post incision and drainage of bilateral axillary abscesses. 2. Diabetes mellitus type 2 in obese patient. 3. Hypertension. 4. Morbid obesity. Janine Escamilla M.D. I have been assigned to dictate discharge summary on this account and I was not involved in the patient's management. Kojo PhillipsP. DR: LIZABETH JOB#: [id number] CC:
--- NOTE | 2016-10-11 15:02 | Discharge Summary ---
Discharge Summary Hospital Course Date of Admission Sep 28, 2016 at 16:52 Date of Discharge Oct 07, 2016 at 10:30 Admitting Diagnosis bilateral axillary abscesses Reason for Hospitalization: as above HPI Pratima Howard is a 55 year old female who was admitted on Sep 28, 2016 at 16:52 for Hidradenitis Consultations None Procedures See multiple Operative Reports Hospital Course 55 y/o female with hx of hidradenitis, presented to the ED with bilateral axillary abscesses, admitted to inpatient and started on IV abx. Seem by surgery and taken to the OR for debridement and flap closure. No periop or postop complications with either of her surgeries. Once her wound was stable, no fevers/chills, she was dced home on PO abx and pain meds and will f/u with her surgeon in 1-2 weks as outpt Discharge Medications Continued Medications: Amlodipine Besylate* (Amlodipine Besylate*) 10 Mg Tablet 10 MG ORAL DAILY, TAB Hydrochlorothiazide* (Hydrochlorothiazide*) 25 Mg Tablet 25 MG ORAL DAILY, TAB Losartan Potassium (Losartan Potassium) 100 Mg Tablet 100 MG ORAL DAILY, TAB Metformin Hcl* (Metformin Hcl*) 500 Mg Tablet 500 MG ORAL TWICE A DAY, TAB Montelukast Sodium* (Montelukast Sodium*) 10 Mg Tablet 10 MG ORAL DAILY, TAB Discharge Condition Upon Discharge: stable Discharge Disposition Patient was discharged to Home (01) Discharge Diagnoses: (1) HTN (hypertension) (2) Abscesses of both axillae (3) Morbid obesity due to excess calories (4) Diabetes mellitus type 2 in obese EMIL NAVARRO Oct 11, 2016 15:02
== END 2016-10-07 10:30 | disposition home or self-care (01) | DRG 574 ==
LOC: EMR 14:24 → 3E 16:52 → EDBEDREQ 17:43
PROC: 0JBF0ZZ Excision of Left Upper Arm Subcutaneous Tissue and Fascia, Open Approach (ICD-10-PCS; principal; 2016-09-29 15:00)
PROC: 0H85XZZ Division of Chest Skin, External Approach (ICD-10-PCS; principal; 2016-09-29 15:00)
PROC: 0JBD0ZZ Excision of Right Upper Arm Subcutaneous Tissue and Fascia, Open Approach (ICD-10-PCS; principal; 2016-09-29 15:00)
PROC: 0H8BXZZ Division of Right Upper Arm Skin, External Approach (ICD-10-PCS; principal; 2016-09-29 15:00)
PROC: 0H8CXZZ Division of Left Upper Arm Skin, External Approach (ICD-10-PCS; principal; 2016-09-29 15:00)
PROC: 0HBVXZZ (ICD-10-PCS; 2016-10-04)
PROC: 0HX5XZZ Transfer Chest Skin, External Approach (ICD-10-PCS; 2016-10-04)
PROC: 0JX60ZZ Transfer Chest Subcutaneous Tissue and Fascia, Open Approach (ICD-10-PCS; 2016-10-04)
DX: L02.412 Cutaneous abscess of left axilla (principal); Z68.41 Body mass index [BMI] 40.0-44.9, adult; I10 Essential (primary) hypertension; E66.01 Morbid (severe) obesity due to excess calories; L02.411 Cutaneous abscess of right axilla; L73.2 Hidradenitis suppurativa; E11.9 Type 2 diabetes mellitus without complications; Z88.6 Allergy status to analgesic agent; L08.89 Other specified local infections of the skin and subcutaneous tissue
CPT/HCPCS: 36415; 71010; 80048; 80053; 81003; 82962; 83036; 85007; 85025; 85610; 85730; 87040; 93005; 93970; 94003; 94150; J1815; J2250; J2405; J2710; J2765

== ENCOUNTER 2016-10-19 14:43 | Inpatient (IN) | payer OTHER ==
[~2016-10-19] VITALS: Ht 162.6 cm; Wt 133.4 kg
[~2016-10-19 14:43] MED LIST: AMLODIPINE BESY10 MG ORAL; HYDROCHLOROTHIA25 MG ORAL; LOSARTAN POTAS100 MG ORAL; METFORMIN HCL500 M1 ORAL; MONTELUKAST SOD10 MG ORAL
--- NOTE | 2016-10-19 15:34 | Emergency Room Report ---
History of Present Illness General Chief Complaint: General Complaint Source: Medical Record Present Illness HPI 56 y/o female c/o admission for surgerical revision for hidrinitis supportiva surgery requested by Dr. Lee. Patient states she had surgery 3 weeks ago and since then her wounds have opened and has purulent drainage coming from bandages. States she is currently on Keflex PO and is taking with good compliance w/o AE. Patient has no additional complains. States Dr. Sifuentes will be taking care of patient once admitted. Allergies: Coded Allergies: CODEINE (Verified Allergy, Severe, 09/28/16) vomiting Patient History Past Medical History: see triage record Past Surgical History: other Pertinent Family History: none Now: No Immunizations: UTD Reviewed Nursing Documentation: PMH: Agreed, PSxH: Agreed Nursing Documentation-PMH Hx Hypertension: Yes - 26 years Hx Diabetes: Yes - type 2 since 2014 Hx Cancer: No Hx Neurological Problems: No Review of Systems All Other Systems: negative except mentioned in HPI Physical Exam Vital Signs Date Time Temp Pulse Resp B/P Pulse Ox O2 Delivery O2 Flow Rate FiO2 10/19/16 14:49 99.0 115 18 139/93 96 Room Air Sp02 EP Interpretation: reviewed, normal General Appearance: no apparent distress, alert, GCS 15, non-toxic Head: normocephalic, atraumatic Eyes: bilateral eye normal inspection ENT: normal ENT inspection Respiratory: chest non-tender, lungs clear, normal breath sounds, speaking full sentences Cardiovascular #1: regular rate, rhythm, no edema Musculoskeletal: gait/station normal, decreased range of motion - of bilateral UE due to pain / surgery Psychiatric: mood/affect normal Skin: warm/dry, other - harinder not intact in right axilla with gaping surgical wound / cavity and purulent drainage. Left axilla with harinder intact but with purulent drainage present and tenderness Medical Decision Making PA Attestation Dr. Anderson is my supervising physician with whom patient management has been discussed with. Diagnostic Impression: Primary Impression: Hidradenitis suppurativa of left axilla Additional Impressions: Hidradenitis suppurativa of right axilla Post-operative complication Qualified Codes: L76.82 - Other postprocedural complications of skin and subcutaneous tissue Post op infection ER Course Patient was admitted and care was transferred to Dr. Sifuentes. Patient was started on IV abx and was transferred to [facility]. Preop workup was completed per request of admitting doctor which were considered low risk for shady/post complications. My Orders - JAMAR HORTON Procedure Category Date Status Time CMP LAB 10/19/16 Complete 15:19 Iv Access / Saline CARE 10/19/16 Transmitted Lock 15:19 Saline 10ml Flush PHA 10/19/16 In Process (Saline 10ml Flush) 15:30 Clindamycin 300mg PHA 10/19/16 Complete (Cleocin 300mg) 15:45 Ekg Tracing Only CARD 10/19/16 Logged 16:48 Culture Blood ELY 10/19/16 In Process 16:51 Culture Mrsa ELY 10/19/16 Uncollected Culture Vre Screen ELY 10/19/16 Uncollected Laboratory Tests Test 10/19/16 16:30 10/19/16 18:35 Sodium Level 142 mEQ/L (135-145) Potassium Level 4.1 mEQ/L (3.4-4.9) Chloride Level 101 mEQ/L (98-107) Carbon Dioxide Level 26 mEQ/L (20-30) Anion Gap 15 (5-15) Blood Urea Nitrogen 23 mg/dL (7-23) Creatinine 1.1 mg/dL (0.5-0.9) H Estimate Glomerular Filtration Rate 51.3 mL/min (>60) Glucose Level 107 mg/dL (74-106) H Calcium Level 9.6 mg/dL (8.6-10.2) Total Bilirubin < 0.2 mg/dL (0.0-1.2) Aspartate Amino Transferase (AST) 31 U/L (5-40) Alanine Aminotransferase (ALT) 22 U/L (3-33) Alkaline Phosphatase 82 U/L (35-104) Total Protein 7.2 g/dL (6.6-8.7) Albumin 3.8 g/dL (3.5-5.2) Globulin 3.4 g/dL Albumin/Globulin Ratio 1.1 (1.0-2.7) White Blood Count 11.0 K/UL (4.8-10.8) H Red Blood Count 3.58 M/UL (4.20-5.40) L Hemoglobin 11.1 G/DL (12.0-16.0) L Hematocrit 32.8 % (37.0-47.0) L Mean Corpuscular Volume 92 FL (80-99) Mean Corpuscular Hemoglobin 30.9 PG (27.0-31.0) Mean Corpuscular Hemoglobin Concent 33.7 G/DL (32.0-36.0) Red Cell Distribution Width 14.0 % (11.6-14.8) Platelet Count 331 K/UL (150-450) Mean Platelet Volume 7.6 FL (6.5-10.1) Neutrophils (%) (Auto) 73.1 % (45.0-75.0) Lymphocytes (%) (Auto) 18.7 % (20.0-45.0) L Monocytes (%) (Auto) 4.9 % (1.0-10.0) Eosinophils (%) (Auto) 2.9 % (0.0-3.0) Basophils (%) (Auto) 0.5 % (0.0-2.0) Prothrombin Time 9.5 SEC (9.30-11.50) Prothrombin Time INR 0.9 (0.9-1.1) PTT 22 SEC (23-33) L EKG Diagnostic Results Rate: normal Rhythm: NSR ST Segments: no acute changes Last Vital Signs Date Time Temp Pulse Resp B/P Pulse Ox O2 Delivery O2 Flow Rate FiO2 10/19/16 14:49 99.0 115 18 139/93 96 Room Air Disposition: ADMITTED INPATIENT Referrals: NON PHYSICIAN (PCP) JAMAR HORTON Oct 19, 2016 15:34
--- NOTE | 2016-10-19 16:38 | History and Physical ---
History of Present Illness General Date patient seen: Oct 19, 2016 Time patient seen: 16:37 Reason for Hospitalization: drainage from wounds Present Illness HPI 56y/o female with pmh of DM2, HTN, hidradenitis suppurative w/ recnpt admission (09/28-10/07) for b/l axillar abscesses s/p debridement and flap closure who presents with wound dehiscence and drainage. Pt states following last hospital discharge she completed course of PO doxycline. She had not been having much pain. But yesterday she noted wounds opening up and increased purulent drainage from wounds. She called Dr. Arias yesterday and was started on PO keflex. She was seen by Dr. Arias in office today and instructed to come to ER given needed for further surgery. Had some low-grade temps at home. Denies chills, chest pain, SOB, abd pain, n/v, d/c. Able to walk several blocks and a few flights of stairs w/o chest pain or SOB. In ER, pt given clindamycin after cultures drawn. Allergies: Coded Allergies: CODEINE (Verified Allergy, Severe, 09/28/16) vomiting Medication History Scheduled Amlodipine Besylate* (Amlodipine Besylate*), 10 MG ORAL DAILY, (Reported) Hydrochlorothiazide* (Hydrochlorothiazide*), 25 MG ORAL DAILY, (Reported) Losartan Potassium (Losartan Potassium), 100 MG ORAL DAILY, (Reported) Metformin Hcl* (Metformin Hcl*), 500 MG ORAL TWICE A DAY, (Reported) Montelukast Sodium* (Montelukast Sodium*), 10 MG ORAL DAILY, (Reported) Patient History History Provided By: Family Member Healthcare decision maker Daughter Resuscitation status Full code Advanced Directive on File Past Medical/Surgical History Past Medical/Surgical History: (1) Diabetes mellitus type 2 in obese (2) Morbid obesity due to excess calories (3) HTN (hypertension) (4) Hidradenitis suppurativa of right axilla (5) Hidradenitis suppurativa of left axilla Family History Family History: Patient reports no known family medical history. Review of Systems Constitutional: Reports: fever, weakness Eye: Reports: no symptoms ENT: Reports: no symptoms Respiratory: Reports: no symptoms Cardiovascular: Reports: no symptoms Gastrointestinal: Reports: no symptoms Genitourinary: Reports: no symptoms Musculoskeletal: Reports: no symptoms Skin: Reports: no symptoms Psychiatric: Reports: no symptoms Neurological: Reports: no symptoms Endocrine: Reports: no symptoms Hematologic/Lymphatic: Reports: no symptoms All Other Systems: negative except mentioned in HPI Physical Exam Physical Exam Narrative General: alert, cooperative, no distress, appears stated age Head: normocephalic, without obvious abnormality, atraumatic Eyes: conjunctivae/corneas clear. PERRL, EOM's intact Throat: lips, mucosa, and tongue normal. MMM Neck: supple, symmetrical, trachea midline, and no JVD Lungs: clear to auscultation bilaterally Heart: regular rate and rhythm, S1, S2 normal, no murmur, click, rub or gallop Abdomen: soft, non-tender, non-distended, bowel sounds normal; no masses or organomegaly Extremities: extremities normal, atraumatic, no cyanosis or edema Pulses: 2+ and symmetric Skin: skin color, texture, turgor normal; harinder not intact in right axilla with gaping surgical wound / cavity and purulent drainage. Left axilla with harinder intact but with purulent drainage present and tenderness Neurologic: grossly normal, no focal deficits Last 24 Hour Vital Signs Date Time Temp Pulse Resp B/P Pulse Ox O2 Delivery O2 Flow Rate FiO2 10/19/16 14:49 99.0 115 18 139/93 96 Room Air Height (Feet): 5 Height (Inches): 4.00 Weight (Pounds): 250 Assessment/Plan Problem List: (1) Wound dehiscence ICD Codes: T81.30XA - Disruption of wound, unspecified, initial encounter SNOMED: 560184269 (2) Hidradenitis suppurativa of left axilla ICD Codes: L73.2 - Hidradenitis suppurativa SNOMED: 656812190 (3) Hidradenitis suppurativa of right axilla ICD Codes: L73.2 - Hidradenitis suppurativa SNOMED: 376525988 (4) Abscesses of both axillae ICD Codes: L02.411 - Cutaneous abscess of right axilla; L02.412 - Cutaneous abscess of left axilla SNOMED: 67449336 (5) HTN (hypertension) ICD Codes: I10 - Essential (primary) hypertension SNOMED: 97555373 (6) Diabetes mellitus type 2 in obese ICD Codes: E11.69 - Type 2 diabetes mellitus with other specified complication ; E66.9 - Obesity, unspecified SNOMED: 42643412 (7) Morbid obesity due to excess calories ICD Codes: E66.01 - Morbid (severe) obesity due to excess calories SNOMED: 803662279 Status: stable Assessment/Plan Admit in Plastic surgery Dr. Arias consulted Check blood cultures IV ancef NPO at [place] for possible OR tomorrow mIVFs Scr slightly elevated so will hold losartan and HCTZ for now Cont home amlodipine, MTF, singulair Monitor CBC, BMP Pain control, supportive care, bowel regimen SCDs for DVT ppx If patient is required to have surgery, based on the patient's medical history, and other available ancillary data, the patient is a LOW risk for an INTERMEDIATE risk procedure. Per the most recent ACC/AHA guidelines, the patient does not need any further cardiopulmonary testing prior to the procedure and there do not appear to be any clear medical contraindications to proceeding with the proposed procedure. Darren Villeda M.D. Oct 19, 2016 16:38
[2016-10-19] MEDS ORDERED: Morphine Sulfate 2mg/ml Inj IVP ONE (17:15)
[2016-10-19 17:31] LABS: ALANINE AMINOTRANSFERASE 22 U/L (3-33); ALBUMIN/GLOBULIN RATIO 1.1 (1.0-2.7); ANION GAP 15 (5-15); ASPARTATE AMINO TRANSFERASE 31 U/L (5-40); CALCIUM 9.6 mg/dL (8.6-10.2); CARBON DIOXIDE 26 mEQ/L (20-30); CHLORIDE 101 mEQ/L (98-107); CREATININE 1.1 mg/dL (0.5-0.9); GLOMERULAR FILTRATION RATE 51.3 mL/min (>60); HEMOLYSIS 40; POTASSIUM 4.1 mEQ/L (3.4-4.9); SODIUM 142 mEQ/L (135-145); TOTAL PROTEIN 7.2 g/dL (6.6-8.7)
[2016-10-19] MEDS ORDERED: Mylanta II UD 30ml ORAL PRN (19:00)
[2016-10-19] MEDS ORDERED: Norco 10mg/325mg tab ORAL PRN (19:00)
[2016-10-19] MEDS ORDERED: Zolpidem 5mg tab ORAL PRN (19:00)
[2016-10-19] MEDS ORDERED: Norco 5mg/325mg tab ORAL PRN (19:00)
[2016-10-19] MEDS ORDERED: Miralax 17gm pkt ORAL PRN (19:00)
[2016-10-19] MEDS ORDERED: Milk of Magnesia 30ml Ud ORAL PRN (19:00)
[2016-10-19 19:06] VITALS: BP 130/86
[2016-10-19 19:07] LABS: BASOPHILS % (AUTO) 0.5 % (0.0-2.0); EOSINOPHILS % (AUTO) 2.9 % (0.0-3.0); LYMPHOCYTES % (AUTO) 18.7 % (20.0-45.0); MEAN CORPUSCULAR HEMOGLOBIN 30.9 PG (27.0-31.0); MEAN CORPUSCULAR HGB CONC 33.7 G/DL (32.0-36.0); MEAN CORPUSCULAR VOLUME 92 FL (80-99); MEAN PLATELET VOLUME 7.6 FL (6.5-10.1); MONOCYTES % (AUTO) 4.9 % (1.0-10.0); NEUTROPHILS % (AUTO) 73.1 % (45.0-75.0); PLATELET COUNT 331 K/UL (150-450); RED BLOOD COUNT 3.58 M/UL (4.20-5.40)
[2016-10-19 19:19] LABS: INR 0.9 (0.9-1.1); PROTHROMBIN TIME 9.5 SEC (9.30-11.50)
[2016-10-19 19:30] VITALS: BP 116/73
[2016-10-19 20:00] VITALS: BP 116/73
[2016-10-19] MEDS: metFORMIN 500mg tab ORAL SCH (20:25)
[2016-10-19] MEDS: Docusate 100mg cap ORAL SCH (20:25)
[2016-10-19] MEDS: ceFAZolin sod 1 GM in D5W 55 ML IVPB SCH (22:00)
[2016-10-20] VITALS (13 sets, daily range): BP systolic 112–174; BP diastolic 51–84
[2016-10-20 05:54] LABS: BASOPHILS % (AUTO) 0.5 % (0.0-2.0); EOSINOPHILS % (AUTO) 4.3 % (0.0-3.0); LYMPHOCYTES % (AUTO) 22.7 % (20.0-45.0); MEAN CORPUSCULAR HEMOGLOBIN 28.6 PG (27.0-31.0); MEAN CORPUSCULAR HGB CONC 30.8 G/DL (32.0-36.0); MEAN CORPUSCULAR VOLUME 93 FL (80-99); MONOCYTES % (AUTO) 5.6 % (1.0-10.0); PLATELET COUNT 321 K/UL (150-450); RED BLOOD COUNT 3.51 M/UL (4.20-5.40); WHITE BLOOD COUNT 8.3 K/UL (4.8-10.8)
[2016-10-20 06:20] LABS: ANION GAP 15 (5-15); CALCIUM 9.4 mg/dL (8.6-10.2); CARBON DIOXIDE 23 mEQ/L (20-30); CHLORIDE 104 mEQ/L (98-107); CREATININE 0.8 mg/dL (0.5-0.9); GLOMERULAR FILTRATION RATE > 60 mL/min (>60); HEMOLYSIS 0; POTASSIUM 3.7 mEQ/L (3.4-4.9); SODIUM 142 mEQ/L (135-145)
[2016-10-20] MEDS: ceFAZolin sod 1 GM in D5W 55 ML IVPB SCH ×3 (06:21→21:45)
[2016-10-20] MEDS: metFORMIN 500mg tab ORAL SCH ×2 (06:21→16:30)
[2016-10-20] MEDS: Docusate 100mg cap ORAL SCH ×2 (08:16→21:45)
[2016-10-20] MEDS: Montelukast 10mg tablet ORAL SCH (08:17)
[2016-10-20] MEDS ORDERED: Lidocaine 1% 10mg/ml/Epi 0.005mg/ml 30ml vial INJ ONE (13:02)
[2016-10-20] MEDS ORDERED: Bacitracin 50000 Units Vial ONE (13:02)
[2016-10-20] MEDS ORDERED: Surgicel 4in x 8in TOPIC ONE ×2 (13:02→15:21)
[2016-10-20] MEDS ORDERED: Lidocaine 1% MPF 10mg/ml 5ml ONE (14:00)
[2016-10-20] MEDS ORDERED: Succinylcholine 20mg/ml 10ml vial ONE (14:00)
[2016-10-20] MEDS ORDERED: fentaNYL 250mcg/5ml ONE (14:00)
[2016-10-20] MEDS ORDERED: Sterile Water Irrig 1000ml IRRIG ONE (14:00)
[2016-10-20] MEDS ORDERED: LR 1000ml ONE (14:00)
[2016-10-20] MEDS ORDERED: Ketorolac 30mg Inj ONE (14:00)
[2016-10-20] MEDS ORDERED: Glycopyrrolate 0.2mg/ml 1ml Vial ONE (14:00)
[2016-10-20] MEDS ORDERED: Metoclopramide 10mg/2ml Inj ONE (14:00)
[2016-10-20] MEDS ORDERED: NS Irrig 1000ml ONE (14:00)
[2016-10-20] MEDS ORDERED: Midazolam 2mg/2ml Inj ONE (14:00)
[2016-10-20] MEDS ORDERED: Neostigmine 1mg/ml 10ml Inj ONE (14:00)
[2016-10-20] MEDS ORDERED: Zemuron 50mg/5ml Inj IV ONE (14:00)
--- NOTE | 2016-10-20 14:04 | Pre-Procedure Note/Attestation ---
Pre-Procedure Note/Attestation Complete Prior to Procedure Planned Procedure: bilateral Procedure Narrative: Bilateral axillary debridement and flap closure with wound vac placement Attestation I attest that I discussed the nature of the procedure; its benefits; risks and complications; and alternatives (and the risks and benefits of such alternatives ), prior to the procedure, with the patient (or the patient's legal senior human resources representative). I attest that, if there was a reasonable possibility of needing a blood transfusion, the patient (or the patient's legal senior human resources representative) was given the [facility] standardized written summary, pursuant to the Maulik Umapine Blood Safety Act ([place] Health and Safety Code # 1645, as amended). I attest that I re-evaluated the patient just prior to the surgery and that there has been no change in the patient's H&P, except as documented below: HANSEL FONTANEZ Oct 20, 2016 14:03
[2016-10-20] MEDS ORDERED: Propofol 10mg/ml 20ml IV ONE (14:14)
--- NOTE | 2016-10-20 15:03 | Anethesia Preoperative Eval ---
Anesthesia Pre-op PMH/ROS General Date of Evaluation: Oct 20, 2016 Anesthesiologist: Ty ASA Score: ASA 3 Mallampati Score Class I : Soft palate, uvula, fauces, pillars visible Class II: Soft palate, uvula, fauces visible Class III: Soft palate, base of uvula visible Class IV: Only hard plate visible Mallampati Classification: Class III Surgeon: Hugo Diagnosis: Bilateral axillary HS Surgical Procedure: Bilateral axillary wound I&D and closure Anesthesia History: none Family History: no anesthesia problems Allergies: Coded Allergies: CODEINE (Verified Allergy, Severe, 09/28/16) vomiting Medications: see eMAR Past Medical History Cardiovascular: Reports: HTN, Denies: CAD, ME, arrhythmia, other, valve dz Pulmonary: Reports: OWEN, Denies: COPD, asthma, other Gastrointestinal/Genitourinary: Reports: GERD, Denies: CRI, ESRD, other Neurologic/Psychiatric: Reports: depression/anxiety, Denies: CVA, TIA, dementia, other Endocrine: Reports: DM, Denies: hypothyroidism, other, steroids HEENT: Denies: OMAHA (L), OMAHA (R), cataract (L), cataract (R), glaucoma, other Hematology/Immune: Reports: anemia, Denies: DVT, bleeding disorder, other Musculoskeletal/Integumentary: Reports: other - HS, Denies: DDD, DJD, OA, RA, edema Other: obesity PSxH Narrative: lap marcelle, DIRK, multiple axillary I&D's Anesthesia Pre-op Phys. Exam Physician Exam Last Vital Signs Date Time Temp Pulse Resp B/P Pulse Ox O2 Delivery O2 Flow Rate FiO2 10/20/16 12:28 97.0 91 20 129/80 96 Room Air 10/19/16 20:00 Constitutional: NAD Cardiovascular: RRR Respiratory: other - dimished breath sounds bilaterallyh Airway Exam Mallampati Score: Class III MO: limited ROM: limited Teeth: missing, intact Anesthesia Pre-op A/P Labs Hematology Test 10/19/16 18:35 10/20/16 05:05 White Blood Count 11.0 K/UL (4.8-10.8) H 8.3 K/UL (4.8-10.8) Red Blood Count 3.58 M/UL (4.20-5.40) L 3.51 M/UL (4.20-5.40) L Hemoglobin 11.1 G/DL (12.0-16.0) L 10.0 G/DL (12.0-16.0) L Hematocrit 32.8 % (37.0-47.0) L 32.6 % (37.0-47.0) L Mean Corpuscular Volume 92 FL (80-99) 93 FL (80-99) Mean Corpuscular Hemoglobin 30.9 PG (27.0-31.0) 28.6 PG (27.0-31.0) Mean Corpuscular Hemoglobin Concent 33.7 G/DL (32.0-36.0) 30.8 G/DL (32.0-36.0) L Red Cell Distribution Width 14.0 % (11.6-14.8) 14.0 % (11.6-14.8) Platelet Count 331 K/UL (150-450) 321 K/UL (150-450) Mean Platelet Volume 7.6 FL (6.5-10.1) 8.0 FL (6.5-10.1) Neutrophils (%) (Auto) 73.1 % (45.0-75.0) 67.0 % (45.0-75.0) Lymphocytes (%) (Auto) 18.7 % (20.0-45.0) L 22.7 % (20.0-45.0) Monocytes (%) (Auto) 4.9 % (1.0-10.0) 5.6 % (1.0-10.0) Eosinophils (%) (Auto) 2.9 % (0.0-3.0) 4.3 % (0.0-3.0) H Basophils (%) (Auto) 0.5 % (0.0-2.0) 0.5 % (0.0-2.0) Coagulation Test 10/19/16 18:35 Prothrombin Time 9.5 SEC (9.30-11.50) Prothromb Time International Ratio 0.9 (0.9-1.1) Activated Partial Thromboplast Time 22 SEC (23-33) L Chemistry Test 10/19/16 16:30 10/20/16 05:05 Sodium Level 142 mEQ/L (135-145) 142 mEQ/L (135-145) Potassium Level 4.1 mEQ/L (3.4-4.9) 3.7 mEQ/L (3.4-4.9) Chloride Level 101 mEQ/L (98-107) 104 mEQ/L (98-107) Carbon Dioxide Level 26 mEQ/L (20-30) 23 mEQ/L (20-30) Anion Gap 15 (5-15) 15 (5-15) Blood Urea Nitrogen 23 mg/dL (7-23) 25 mg/dL (7-23) H Creatinine 1.1 mg/dL (0.5-0.9) H 0.8 mg/dL (0.5-0.9) Estimat Glomerular Filtration Rate 51.3 mL/min (>60) > 60 mL/min (>60) Glucose Level 107 mg/dL (74-106) H 151 mg/dL (74-106) H Calcium Level 9.6 mg/dL (8.6-10.2) 9.4 mg/dL (8.6-10.2) Total Bilirubin < 0.2 mg/dL (0.0-1.2) Aspartate Amino Transf (AST/SGOT) 31 U/L (5-40) Alanine Aminotransferase (ALT/SGPT) 22 U/L (3-33) Alkaline Phosphatase 82 U/L (35-104) Total Protein 7.2 g/dL (6.6-8.7) Albumin 3.8 g/dL (3.5-5.2) Globulin 3.4 g/dL Albumin/Globulin Ratio 1.1 (1.0-2.7) Magnesium Level 1.7 mg/dL (1.7-2.5) Studies Pre-op Studies: EKG - sr Risk Assessment & Plan Assessment: ASA III Plan: GA Status Change Before Surgery: No Pre-Antibiotics Drug: Ancef 2g Given Within 1 Hr of Incision: Yes Time Given: 14:15 SAILAJA WARE M.D. Oct 20, 2016 15:03
[2016-10-20] MEDS ORDERED: LR 1000ml 1,000 ML IVLG SCH (15:04)
--- NOTE | 2016-10-20 15:04 | Immediate Post-Op Evaluation ---
Immediate Post-Op Evalulation Immediate Post-Op Evalulation Procedure: Bilateral axillary wound I&D and closure Date of Evaluation: Oct 20, 2016 Time of Evaluation: 16:23 IV Fluids: 400 Blood Products: 0 Estimated Blood Loss: 25 Urinary Output: 0 Blood Pressure Systolic: 174 Blood Pressure Diastolic: 51 Pulse Rate: 118 Respiratory Rate: 16 O2 Sat by Pulse Oximetry: 95 Temperature (Fahrenheit): 99 Pain Score (1-10): 0 Nausea: No Vomiting: No Complications 0 Patient Status: awake, reacts, patent, none Hydration Status: adequate Drug: Ancef 2g Given Within 1 Hr of Incision: Yes Time Given: 14:15 SAILAJA WARE M.D. Oct 20, 2016 15:04
[2016-10-20] MEDS ORDERED: LORazepam Inj 2mg/ml 1ml IV PRN (15:15)
[2016-10-20] MEDS ORDERED: DiphenhydrAMINE 50mg/ml Inj IVP PRN (15:15)
[2016-10-20] MEDS ORDERED: Metoclopramide 10mg/2ml Inj IVP PRN (15:15)
[2016-10-20] MEDS ORDERED: fentaNYL 100 mcg/2 mL IV PRN (15:15)
[2016-10-20] MEDS ORDERED: Midazolam 2mg/2ml Inj IVP PRN (15:15)
--- NOTE | 2016-10-20 15:25 | General Progress Note ---
Assessment/Plan Problem List: (1) Wound dehiscence ICD Codes: T81.30XA - Disruption of wound, unspecified, initial encounter SNOMED: 418833542 (2) Hidradenitis suppurativa of left axilla ICD Codes: L73.2 - Hidradenitis suppurativa SNOMED: 616922841 (3) Hidradenitis suppurativa of right axilla ICD Codes: L73.2 - Hidradenitis suppurativa SNOMED: 810018031 (4) Abscesses of both axillae ICD Codes: L02.411 - Cutaneous abscess of right axilla; L02.412 - Cutaneous abscess of left axilla SNOMED: 42667850 (5) HTN (hypertension) ICD Codes: I10 - Essential (primary) hypertension SNOMED: 82558008 (6) Diabetes mellitus type 2 in obese ICD Codes: E11.69 - Type 2 diabetes mellitus with other specified complication ; E66.9 - Obesity, unspecified SNOMED: 43009780 (7) Morbid obesity due to excess calories ICD Codes: E66.01 - Morbid (severe) obesity due to excess calories SNOMED: 706822759 Status: stable Assessment/Plan Plastic surgery Dr. Arias consulted s/p Bilateral axillary debridement and flap closure with wound vac placement F/u blood cultures--1/4 bottles w/ GPC in clusters likely a contaminant Repeat blood cultures today IV ancef mIVFs Cont home amlodipine, MTF, singulair, losartan Hold HCTZ for now Monitor CBC, BMP Pain control, supportive care, bowel regimen HSQ for DVT ppx Subjective Date patient seen: Oct 20, 2016 Time patient seen: 15:24 ROS Limited/Unobtainable: No Constitutional: Reports: no symptoms HEENT: Reports: no symptoms Cardiovascular: Reports: no symptoms Respiratory: Reports: no symptoms Gastrointestinal/Abdominal: Reports: no symptoms Genitourinary: Reports: no symptoms Neurologic/Psychiatric: Reports: no symptoms Endocrine: Reports: no symptoms Hematologic/Lymphatic: Reports: no symptoms Allergies: Coded Allergies: CODEINE (Verified Allergy, Severe, 09/28/16) vomiting All Systems: reviewed and negative except above Subjective s/p bilateral axillary debridement and flap closure with wound vac placement today Pt doing well 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 Denies f/c, n/v, d/c, chest pain, SOB Objective Last 24 Hour Vital Signs Date Time Temp Pulse Resp B/P Pulse Ox O2 Delivery O2 Flow Rate FiO2 10/20/16 12:28 97.0 91 20 129/80 96 Room Air 10/20/16 08:10 97.9 91 20 140/80 96 Room Air 10/20/16 04:00 98.1 99 18 137/75 100 Room Air 10/20/16 00:00 98.0 94 18 148/71 98 Room Air 10/19/16 20:00 98.1 98 18 116/73 99 Room Air 10/19/16 19:30 98.1 98 18 116/73 94 Room Air 10/19/16 19:26 98.6 94 20 130/86 98 Room Air 10/19/16 19:06 98.6 94 20 130/86 98 Room Air Intake and Output 10/19/16 10/20/16 19:00 07:00 Intake Total 240 ml Balance 240 ml Intake Oral 240 ml # Bowel Movements 1 Laboratory Tests 10/19/16 16:30: Sodium Level 142, Potassium Level 4.1, Chloride Level 101, Carbon Dioxide Level 26, Anion Gap 15, Blood Urea Nitrogen 23, Creatinine 1.1H, Estimat Glomerular Filtration Rate 51.3, Glucose Level 107H, Calcium Level 9.6, Total Bilirubin < 0.2, Aspartate Amino Transf (AST/SGOT) 31, Alanine Aminotransferase (ALT/SGPT) 22, Alkaline Phosphatase 82, Total Protein 7.2, Albumin 3.8, Globulin 3.4, Albumin/Globulin Ratio 1.1 10/19/16 18:35: White Blood Count 11.0H, Red Blood Count 3.58L, Hemoglobin 11.1L, Hematocrit 32.8L, Mean Corpuscular Volume 92, Mean Corpuscular Hemoglobin 30.9, Mean Corpuscular Hemoglobin Concent 33.7, Red Cell Distribution Width 14.0, Platelet Count 331, Mean Platelet Volume 7.6, Neutrophils (%) (Auto) 73.1, Lymphocytes (% ) (Auto) 18.7L, Monocytes (%) (Auto) 4.9, Eosinophils (%) (Auto) 2.9, Basophils (%) (Auto) 0.5, Prothrombin Time 9.5, Prothromb Time International Ratio 0.9, Activated Partial Thromboplast Time 22L 10/20/16 05:05: Sodium Level 142, Potassium Level 3.7, Chloride Level 104, Carbon Dioxide Level 23, Anion Gap 15, Blood Urea Nitrogen 25H, Creatinine 0.8, Estimat Glomerular Filtration Rate > 60, Glucose Level 151H, Calcium Level 9.4, White Blood Count 8.3, Red Blood Count 3.51L, Hemoglobin 10.0L, Hematocrit 32.6L, Mean Corpuscular Volume 93, Mean Corpuscular Hemoglobin 28.6, Mean Corpuscular Hemoglobin Concent 30.8L, Red Cell Distribution Width 14.0, Platelet Count 321, Mean Platelet Volume 8.0, Neutrophils (%) (Auto) 67.0, Lymphocytes (%) (Auto) 22.7, Monocytes (%) (Auto) 5.6, Eosinophils (%) (Auto) 4.3H, Basophils (%) (Auto ) 0.5, Magnesium Level 1.7 Height (Feet): 5 Height (Inches): 4.00 Weight (Pounds): 294 Objective General: alert, cooperative, no distress, appears stated age Head: normocephalic, without obvious abnormality, atraumatic Eyes: conjunctivae/corneas clear. PERRL, EOM's intact Throat: lips, mucosa, and tongue normal. MMM Neck: supple, symmetrical, trachea midline, and no JVD Lungs: clear to auscultation bilaterally Heart: regular rate and rhythm, S1, S2 normal, no murmur, click, rub or gallop Abdomen: soft, non-tender, non-distended, bowel sounds normal; no masses or organomegaly Extremities: extremities normal, atraumatic, no cyanosis or edema Pulses: 2+ and symmetric Skin: skin color, texture, turgor normal; harinder not intact in right axilla with gaping surgical wound / cavity and purulent drainage. Left axilla with harinder intact but with purulent drainage present and tenderness Neurologic: grossly normal, no focal deficits Darren Villeda M.D. Oct 20, 2016 15:25
[2016-10-20] MEDS ORDERED: Rate Change PCA 1 Each MISC PRN (15:30)
--- NOTE | 2016-10-20 16:07 | Cardiology Report ---
APPROVED REPORT EKG Measurement Heart [id number] 160P-4 [id number] Normal sinus rhythm Minimal voltage criteria for LVH, may be normal variant Borderline ECG
[2016-10-20] MEDS ORDERED: Losartan 50mg tab ORAL SCH (16:30)
[2016-10-20] MEDS: PCA HYDROmorphone 1mg/ml 30 ML IV PRN (16:36)
[2016-10-20] MEDS: PCA shift volume MISC SCH (19:00)
--- NOTE | 2016-10-20 21:30 | Consultation ---
DATE OF CONSULTATION: 10/20/2016 REASON FOR CONSULTATION: Bilateral wound dehiscences in the axilla. HISTORY OF PRESENT ILLNESS: This is a 56-year-old female, who is now approximately [id number]-[id number] weeks postop from bilateral axillary reconstruction. She was noted to be doing well. At her first postoperative visit, however, she had significant pain associated with bilateral wound dehiscence when she was seen in the office and due to her symptoms she was continually getting worse and presented to the emergency room for evaluation and treatment. She was admitted and started on IV antibiotics and upon my evaluation, I felt that she was an appropriate candidate for debridement, readvancement of flaps, however, not completely closing the wound given the fact that she did have wound dehiscence to begin with. ASSESSMENT AND PLAN: This is a 56-year-old female, who is [id number] weeks status post bilateral axillary reconstruction. She was admitted and started on IV antibiotics and she will be consented to undergo debridement, flap readvancement, and wound VAC closure of her wounds. Arthur Arias M.D. DR: RANI JOB#: [id number] CC:
[2016-10-20] MEDS: Heparin 5000 units/ml inj SUBQ SCH (21:47)
--- NOTE | 2016-10-20 22:45 | Operative Note - Dictated ---
DATE OF OPERATION: 10/20/2016 PREOPERATIVE DIAGNOSIS: Bilateral axillary wound dehiscence. POSTOPERATIVE DIAGNOSIS: Bilateral axillary wound dehiscence. PROCEDURES: 1. Debridement of left axillary wound. 2. Readvancement of superior chest wall flap for closure of left axillary wound. 3. Readvancement of inferior lateral chest wall flap for closure of left axillary wound. 4. Wound VAC placement into the left axillary wound. 5. Debridement of right axillary wound. 6. Reelevation of superior chest wall flap for closure of right axillary wound. 7. Reelevation of right inferior lateral chest wall flap for closure of right axillary wound. 8. Wound VAC placement to the right axillary wound. SURGEON: Arthur Arias M.D. EXERCISE MANAGER: Nohemi Morales M.D. ANESTHESIA: General COMPLICATIONS: None. DRAINS: Bilateral wound VACs set to 150 mm of high continuous suction. DISPOSITION: Stable to the recovery room. INDICATIONS FOR SURGERY: This is a 56-year-old female who is 2-1/2 weeks status post bilateral axillary reconstruction following radical excision of infected tissue who had been doing well, however, recently noticed a pain and associated drainage with dehiscence of her bilateral axillary wounds, for which she presented to the emergency room. Upon evaluation by me, I felt that she was an appropriate candidate for debridement, washout, and readvancement of flaps with partial closure of the wound and wound VAC placement. She understood the risks and benefits of surgery and agreed to proceed. DETAILS OF THE OPERATION: The patient was brought to the operating room and laid in the supine position on the operating room table. Her bilateral axillae were prepped and draped in a sterile and usual fashion. We first began by debriding the left axilla of its nonviable tissue with skin flap edges as well as in the wound bed itself. Once the debridement was completed, the superior chest wall flap was reelevated by releasing it from its fascial attachments while maintaining the perfusion from the thoracoacromial vasculature. With this done, we then proceeded to release the inferior lateral chest wall flap that had been previously elevated based off of perforators of the thoracodorsal artery. Once this was fully mobilized, the wound was then copiously irrigated with pulse lavage and the 2 flaps were brought together inset after readvancement using #0 and 3-0 Vicryl sutures, and the skin was closed with a combination of harinder as well as #0 Prolene sutures. A small area of about 5 x 5 cm was left open in the central aspect of the wound, for which a wound VAC was placed. We then turned our attention to the contralateral right axillary wound. The wound was debrided with nonviable tissue at both the flap edges as well as the wound bed. In a similar fashion, the right superior chest wall flap was readvanced based off of perforators of the thoracoacromial artery and the inferior chest wall flap that was laterally based was also elevated based off of the thoracodorsal artery perforators. With both flaps fully mobilized and brought together, we noted that the wound could be closed partially without tension. Hemostasis was achieved after pulse lavage irrigation. The 2 flaps were brought together using #0 and 2-0 Vicryl sutures with a combination of harinder and #0 Prolene used to close the skin. A 5 x 5 cm open wound was also left here in the central aspect of the wound to take tension off the remainder of the closure and this was packed with a wound VAC. The wound VAC was set to 150 mmHg of high continuous suction on both sides and was noted to be functioning well. The patient tolerated the procedure well. There were no complications. Arthur Arias M.D. DR: Fernando JOB#: [id number] CC:
[2016-10-21 03:53] VITALS: BP 127/77
[2016-10-21] MEDS: metFORMIN 500mg tab ORAL SCH ×2 (05:44→16:02)
[2016-10-21] MEDS: ceFAZolin sod 1 GM in D5W 55 ML IVPB SCH ×3 (05:44→21:10)
[2016-10-21] MEDS: Heparin 5000 units/ml inj SUBQ SCH ×3 (05:55→21:16)
[2016-10-21] MEDS: PCA shift volume MISC SCH (07:07)
[2016-10-21 08:00] VITALS: BP 125/62
[2016-10-21] MEDS: Montelukast 10mg tablet ORAL SCH (08:09)
[2016-10-21] MEDS: Docusate 100mg cap ORAL SCH ×2 (08:10→21:00)
--- NOTE | 2016-10-21 10:23 | General Progress Note ---
Progress Note Progress Note Pt seen and examined. POD # 1 and doing well. Wound vacs fxing and pt feels good. Plan on wound vac change in AM and dc tomorrow or over the weekend. HANSEL Bhardwaj MD Oct 21, 2016 10:23
[2016-10-21] MEDS ORDERED: 1/2 NS 1000ml IV ONE (10:52)
[2016-10-21] MEDS ORDERED: NS 275ml ONE (10:52)
[2016-10-21] MEDS ORDERED: Tubing IV Secondary IV ONE (10:52)
--- NOTE | 2016-10-21 11:18 | 48 Hour Post Anesthesia Eval ---
Post Anesthesia Evaluation Procedure: Bilateral axillary wound I&D and closure Date of Evaluation: Oct 21, 2016 Time of Evaluation: 11:17 Blood Pressure Systolic: 128 0: 76 Pulse Rate: 78 Respiratory Rate: 20 Temperature (Fahrenheit): 97.6 O2 Sat by Pulse Oximetry: 99 Airway: patent Nausea: No Vomiting: No Pain Intensity: 3 Hydration Status: adequate Cardiopulmonary Status: stable Mental Status/LOC: patient returned to baseline Follow-up Care/Observations: n/a Post-Anesthesia Complications: none Follow-up care needed: N/A ADOLFO YEBOAH M.D. Oct 21, 2016 11:18
[2016-10-21 12:01] VITALS: BP 137/77
[2016-10-21] MEDS: Losartan 50mg tab ORAL SCH (16:02)
[2016-10-21] MEDS: PCA HYDROmorphone 1mg/ml 30 ML IV PRN (16:12)
[2016-10-21 16:22] VITALS: BP 135/76
[2016-10-21 20:00] VITALS: BP 134/79
--- NOTE | 2016-10-21 21:46 | General Progress Note ---
Assessment/Plan Problem List: (1) Wound dehiscence ICD Codes: T81.30XA - Disruption of wound, unspecified, initial encounter SNOMED: 204080505 (2) Hidradenitis suppurativa of left axilla ICD Codes: L73.2 - Hidradenitis suppurativa SNOMED: 406902803 (3) Hidradenitis suppurativa of right axilla ICD Codes: L73.2 - Hidradenitis suppurativa SNOMED: 893224213 (4) Abscesses of both axillae ICD Codes: L02.411 - Cutaneous abscess of right axilla; L02.412 - Cutaneous abscess of left axilla SNOMED: 07566551 (5) HTN (hypertension) ICD Codes: I10 - Essential (primary) hypertension SNOMED: 76718304 (6) Diabetes mellitus type 2 in obese ICD Codes: E11.69 - Type 2 diabetes mellitus with other specified complication ; E66.9 - Obesity, unspecified SNOMED: 24112549 (7) Morbid obesity due to excess calories ICD Codes: E66.01 - Morbid (severe) obesity due to excess calories SNOMED: 041084868 (8) Positive blood culture ICD Codes: R78.81 - Bacteremia SNOMED: 845965588 Status: stable Assessment/Plan Plastic surgery Dr. Arias consulted s/p Bilateral axillary debridement and flap closure with wound vac placement on 10/20/16 F/u blood cultures--1/4 bottles w/ GPC in clusters likely a contaminant Repeat blood cultures today IV ancef mIVFs Cont home amlodipine, MTF, singulair, losartan Hold HCTZ for now Monitor CBC, BMP Pain control, supportive care, bowel regimen HSQ for DVT ppx Extra time spent 31min in addition to normal encounter time for care/ coordination and counseling. D/w pt/family, RN and surgery regarding mgmt and dispo. Subjective Date patient seen: Oct 21, 2016 Time patient seen: 09:20 ROS Limited/Unobtainable: No Constitutional: Reports: no symptoms HEENT: Reports: no symptoms Cardiovascular: Reports: no symptoms Respiratory: Reports: no symptoms Gastrointestinal/Abdominal: Reports: no symptoms Genitourinary: Reports: no symptoms Neurologic/Psychiatric: Reports: no symptoms Endocrine: Reports: no symptoms Hematologic/Lymphatic: Reports: no symptoms Allergies: Coded Allergies: CODEINE (Verified Allergy, Severe, 09/28/16) vomiting All Systems: reviewed and negative except above Subjective s/p bilateral axillary debridement and flap closure with wound vac placement POD #1 Pt doing well Pain controlled w/ SURGICAL INSTRUMENT TECHNICIAN Denies f/c, n/v, d/c, chest pain, SOB +BM Objective Last 24 Hour Vital Signs Date Time Temp Pulse Resp B/P Pulse Ox O2 Delivery O2 Flow Rate FiO2 10/21/16 20:00 97.7 88 19 134/79 92 Room Air 10/21/16 16:22 97.7 80 19 135/76 95 Room Air 10/21/16 16:04 18 10/21/16 16:02 135/76 10/21/16 16:00 18 10/21/16 12:01 98.2 84 18 137/77 94 Room Air 10/21/16 12:00 18 10/21/16 11:18 78 20 99 10/21/16 08:10 99 125/62 10/21/16 08:00 97.5 99 18 125/62 99 Room Air 10/21/16 08:00 18 10/21/16 06:34 20 10/21/16 03:53 98.2 98 18 127/77 96 Room Air 10/21/16 02:36 18 10/20/16 23:49 98.2 104 18 122/74 93 Room Air 10/20/16 22:36 19 Intake and Output 10/20/16 10/21/16 19:00 07:00 Intake Total 1115 ml 415 ml Output Total 385 ml 25 ml Balance 730 ml 390 ml Intake Oral 240 ml 360 ml IV Total 875 ml 55 ml Output Urine Total 300 ml Estimated Blood Loss 25 ml Other 60 ml 25 ml # Voids 1 1 Height (Feet): 5 Height (Inches): 4.00 Weight (Pounds): 294 Objective General: alert, cooperative, no distress, appears stated age Head: normocephalic, without obvious abnormality, atraumatic Eyes: conjunctivae/corneas clear. PERRL, EOM's intact Throat: lips, mucosa, and tongue normal. MMM Neck: supple, symmetrical, trachea midline, and no JVD Lungs: clear to auscultation bilaterally Heart: regular rate and rhythm, S1, S2 normal, no murmur, click, rub or gallop Abdomen: soft, non-tender, non-distended, bowel sounds normal; no masses or organomegaly Extremities: extremities normal, atraumatic, no cyanosis or edema Pulses: 2+ and symmetric Skin: skin color, texture, turgor normal; harinder not intact in right axilla with gaping surgical wound / cavity and purulent drainage. Left axilla with harinder intact but with purulent drainage present and tenderness Neurologic: grossly normal, no focal deficits Darren Vlileda M.D. Oct 21, 2016 21:46
[2016-10-22 00:21] VITALS: BP 123/71
[2016-10-22 04:00] VITALS: BP 112/68
[2016-10-22] MEDS: ceFAZolin sod 1 GM in D5W 55 ML IVPB SCH ×2 (05:50→14:00)
[2016-10-22] MEDS: metFORMIN 500mg tab ORAL SCH ×2 (05:51→16:17)
[2016-10-22] MEDS: Heparin 5000 units/ml inj SUBQ SCH ×2 (05:56→14:00)
[2016-10-22 06:35] LABS: BASOPHILS % (AUTO) 1.1 % (0.0-2.0); EOSINOPHILS % (AUTO) 3.7 % (0.0-3.0); LYMPHOCYTES % (AUTO) 33.5 % (20.0-45.0); MEAN CORPUSCULAR HEMOGLOBIN 29.2 PG (27.0-31.0); MEAN CORPUSCULAR HGB CONC 31.3 G/DL (32.0-36.0); MEAN CORPUSCULAR VOLUME 94 FL (80-99); MONOCYTES % (AUTO) 5.3 % (1.0-10.0); NEUTROPHILS % (AUTO) 56.5 % (45.0-75.0); PLATELET COUNT 204 K/UL (150-450); RED BLOOD COUNT 3.17 M/UL (4.20-5.40); RED CELL DISTRIBUTION WIDTH 14.1 % (11.6-14.8); WHITE BLOOD COUNT 7.3 K/UL (4.8-10.8)
[2016-10-22 07:27] LABS: ANION GAP 14 (5-15); CALCIUM 8.8 mg/dL (8.6-10.2); CARBON DIOXIDE 22 mEQ/L (20-30); CHLORIDE 105 mEQ/L (98-107); CREATININE 0.8 mg/dL (0.5-0.9); GLOMERULAR FILTRATION RATE > 60 mL/min (>60); HEMOLYSIS 43; POTASSIUM 4.1 mEQ/L (3.4-4.9); SODIUM 141 mEQ/L (135-145)
[2016-10-22 08:00] VITALS: BP 147/79
[2016-10-22] MEDS: Montelukast 10mg tablet ORAL SCH (08:04)
[2016-10-22] MEDS: Docusate 100mg cap ORAL SCH (08:05)
[2016-10-22] MEDS ORDERED: KEFLEX500 MG ORAL (10:20)
--- NOTE | 2016-10-22 10:20 | Discharge Summary ---
Discharge Summary Hospital Course Date of Admission Oct 19, 2016 at 16:05 Date of Discharge 10/22/16 Admitting Diagnosis hidradenitis suppurativa Reason for Hospitalization: wound dehiscence HPI 56y/o female with pmh of DM2, HTN, hidradenitis suppurative w/ recnpt admission (09/28-10/07) for b/l axillar abscesses s/p debridement and flap closure who presents with wound dehiscence and drainage. Pt states following last hospital discharge she completed course of PO doxycline. She had not been having much pain. But yesterday she noted wounds opening up and increased purulent drainage from wounds. She called Dr. Arias yesterday and was started on PO keflex. She was seen by Dr. Arias in office today and instructed to come to ER given needed for further surgery. Had some low-grade temps at home. Denies chills, chest pain, SOB, abd pain, n/v, d/c. Able to walk several blocks and a few flights of stairs w/o chest pain or SOB. In ER, pt given clindamycin after cultures drawn. Consultations Surgery Procedures PROCEDURES: 10/20/16 1. Debridement of left axillary wound. 2. Readvancement of superior chest wall flap for closure of left axillary wound. 3. Readvancement of inferior lateral chest wall flap for closure of left axillary wound. 4. Wound VAC placement into the left axillary wound. 5. Debridement of right axillary wound. 6. Reelevation of superior chest wall flap for closure of right axillary wound. 7. Reelevation of right inferior lateral chest wall flap for closure of right axillary wound. 8. Wound VAC placement to the right axillary wound. Hospital Course Pt was admitted and seen by surgery. She was placed on IV antibiotics. She underwent incision and debridement of wounds, flap closure and placement of wound vac's b/l. Pt tolerated procedure well. Once pain controlled and cleared by surgery pt was discharged with ambitions and pain meds. Discharge Medications New Medications: Cephalexin* (Keflex*) 500 Mg Capsule 500 MG ORAL Q6H for 7 Days, #28 CAP 0 Refills Continued Medications: Amlodipine Besylate* (Amlodipine Besylate*) 10 Mg Tablet 10 MG ORAL DAILY, TAB Hydrochlorothiazide* (Hydrochlorothiazide*) 25 Mg Tablet 25 MG ORAL DAILY, TAB Losartan Potassium (Losartan Potassium) 100 Mg Tablet 100 MG ORAL DAILY, TAB Metformin Hcl* (Metformin Hcl*) 500 Mg Tablet 500 MG ORAL TWICE A DAY, TAB Montelukast Sodium* (Montelukast Sodium*) 10 Mg Tablet 10 MG ORAL DAILY, TAB Discharge Condition Upon Discharge: stable Discharge Disposition Patient was discharged to home w/ home health A total of 33min of extra time was spent in addition to normal encounter time for care/coordination and counseling. D/w pt/family, RN, surgery, CM/SW regarding disposition and mgmt. Discharge Diagnoses: (1) Wound dehiscence (2) Abscesses of both axillae (3) Morbid obesity due to excess calories (4) Diabetes mellitus type 2 in obese (5) HTN (hypertension) Darren Villeda M.D. Oct 22, 2016 10:20
[2016-10-22 12:00] VITALS: BP 142/83
[2016-10-22 16:00] VITALS: BP 127/64
[2016-10-22 16:17] VITALS: BP 142/83
[2016-10-22] MEDS: Losartan 50mg tab ORAL SCH (16:17)
== END 2016-10-22 17:59 | disposition home health service (06) | DRG 902 ==
LOC: EMR 15:15 → 3E 16:05 → EDBEDREQ 17:03
DX: T81.31XA Disruption of external operation (surgical) wound, not elsewhere classified, initial encounter (principal); L02.411 Cutaneous abscess of right axilla; Z68.41 Body mass index [BMI] 40.0-44.9, adult; I10 Essential (primary) hypertension; E11.9 Type 2 diabetes mellitus without complications; L02.412 Cutaneous abscess of left axilla; Y83.2 Surgical operation with anastomosis, bypass or graft as the cause of abnormal reaction of the patient, or of later complication, without mention of misadventure at the time of the procedure; L73.2 Hidradenitis suppurativa; Z88.6 Allergy status to analgesic agent; E66.01 Morbid (severe) obesity due to excess calories
CPT/HCPCS: 36415; 80048; 80053; 82962; 83735; 85025; 85610; 85730; 87040; 87181; 93005; 94003; 94150; J2250; J2405; J2710; J2765; S0077